=== PATIENT | female | born 1955 | race Caucasian/White ===

== ENCOUNTER → 2017-12-26 | Outpatient (CLI) | payer OTHER ==
[~2017-12-26] MED LIST: ALPR1TAB3 PO; GABA-113 PO; LISD20CA PO
== END | disposition home or self-care (01) ==
LOC: C.LABSPEC 17:24
PROVIDERS: ATTEND Physician Assistant
DX: R31.9 Hematuria, unspecified (principal)

== ENCOUNTER → 2018-02-03 | Outpatient (CLI) | payer OTHER ==
[2018-02-03 13:14] LABS: BASO % 0.7 %; BASO ABS # 0.05 K/uL (0-0.2); EOS % 3.6 %; EOS ABS # 0.24 K/uL (0-0.5); HEMOGLOBIN 14.3 g/dL (12.0-16.0); IG# 0.03 K/uL (0.00-0.02); LYMPH % 39.5 %; LYMPH ABS # 2.64 K/uL (1.2-3.4); MEAN CORPUSCULAR HEMOGLOBIN 29.9 pg (25-34); MEAN CORPUSCULAR HGB CONC 33.3 g/dl (32-36); MEAN PLATELET VOLUME 9.4 fL (7.4-10.4); MONO % 9.6 %; MONO ABS # 0.64 K/uL (0.11-0.59); NEUT % 46.2 %; NEUT ABS # 3.08 K/uL (1.4-6.5); PLATELET COUNT 394 K/uL (130-400); RED CELL DISTRIBUTION WIDTH CV 12.7 % (11.5-14.5); RED CELL DISTRIBUTION WIDTH SD 42.2 fL (36.4-46.3); WHITE BLOOD COUNT 6.68 K/uL (4.8-10.8)
[2018-02-03 13:26] LABS: HEMOGLOBIN A1C 5.8 % (4.5-5.6)
[2018-02-03 13:45] LABS: ALBUMIN 3.9 gm/dl (3.4-5.0); ALT/SGPT 38 U/L (12-78); AST/SGOT 26 U/L (15-37); BLOOD UREA NITROGEN 18 mg/dl (7-18); CALCIUM 9.1 mg/dl (8.5-10.1); CARBON DIOXIDE 28 mmol/L (21-32); CREATININE 0.93 mg/dl (0.60-1.20); GLUCOSE 92 mg/dl (70-99); POTASSIUM 4.1 mmol/L (3.5-5.1); SODIUM 139 mmol/L (136-145)
[2018-02-03 13:56] LABS: ALKALINE PHOSPHATASE 96 U/L (45-117); CHOLESTEROL 366 mg/dl (0-200); TOTAL PROTEIN 8.7 gm/dl (6.4-8.2)
== END | disposition home or self-care (01) ==
LOC: C.LABPBG 11:04
PROVIDERS: ATTEND Family Medicine
DX: Z01.818 Encounter for other preprocedural examination (principal); Z13.220 Encounter for screening for lipoid disorders; Z13.1 Encounter for screening for diabetes mellitus

== ENCOUNTER → 2018-04-10 | Outpatient (CLI) | payer OTHER | END | disposition home or self-care (01) | LOC: C.LABPBG 14:11 | PROVIDERS: ATTEND Family Medicine | DX: R39.9 Unspecified symptoms and signs involving the genitourinary system (principal) ==

== ENCOUNTER 2019-10-15 11:56 | Inpatient (IN) ==
[2019-10-15] MEDS ORDERED: SODIUM CHLORIDE 0.9% 1000ML 1,000 ML IV SCH (12:45)
--- NOTE | 2019-10-15 12:45 | Emergency Department Note ---
Entered by Du Duff acting as a scribe for Norberto Thompson DO History of Present Illness General Chief complaint: Fall Stated complaint: pelvic pain Time Seen by Provider: 10/15/19 12:32 Source: patient Limitations: no limitations History of Present Illness Onset (ago): day(s) (couple days ago) Location: left (hip) Pain Consistency: + constant Maximum Pain Intensity: 10 Quality: + constant Exacerbated By: + movement Associated symptoms: + other (back pain, confusion, delirious, trouble u rinating) The patient is a 64 year old female who presents to the Emergency Room with co mplaints of frequent falls. The patient states she fell multiple times but is unsure exactly how many. She states she fell at least twice. She states she was unloading groceries from the back of a truck when she fell. She notes she has been more confused and delirious lately. She notes she has been having trouble urinating. She states her back hurts. She states she was unable to move around yesterday and notes she fell asleep on the floor last night. She states she thinks she was on the floor for 2 days. She states she fractured her right pelvis 3 years ago. She notes she has severe and constant left hip pain. She states her foot hurts since the fall but is unsure how she injured it. She sta delonte she does not believe she hit her head. Home Medications Home Medications Medication Instructions Recorded Confirmed Type alprazolam 1 mg tablet 1 mg PO TID #20 tab 04/08/19 10/15/19 Rx gabapentin 300 mg capsule 600 mg PO TID cap 04/08/19 10/15/19 History methylphenidate HCl 20 mg tablet 20 mg PO BID 04/08/19 10/15/19 History Synthroid 75 mcg tablet 75 mcg PO DAILY #30 tab NS 05/21/19 10/15/19 Rx lidocaine 5 % topical patch 1 patch TOP DAILY #30 ea 05/25/19 10/15/19 Rx nitroglycerin 0.4 mg sublingual 0.4 mg SL Q5M PRN tab 07/03/19 10/15/19 History tablet Allergies Allergy/AdvReac Type Severity Reaction Status Date / Time codeine Allergy Mild RASH Verified 10/15/19 13:30 Sulfa (Sulfonamide Allergy Unknown . Verified 10/15/19 13:30 Antibiotics) ciprofloxacin Allergy Verified 10/15/19 13:30 latex Allergy Verified 10/15/19 13:30 eszopiclone [From Lunesta] AdvReac Severe wanted to Verified 10/15/19 13:30 hurt herseld lorazepam [From Ativan] AdvReac Severe wanted to Verified 10/15/19 13:30 hurt herself zolpidem [From Ambien] AdvReac Severe wanted to Verified 10/15/19 13:30 hurt herself Past Med/Surg History Medical History ADD (attention deficit disorder) without hyperactivity (Acute) Allergic rhinitis (Acute) Anxiety and depression (Acute) Asthma (Acute) Bipolar disorder COPD (chronic obstructive pulmonary disease) (Acute) Glaucoma (Acute) Lumbar disc disease (Acute) Lumbar radiculopathy (Acute) Panic disorder Peripheral neuropathy (Acute) Post traumatic stress disorder (PTSD) (Acute) Prediabetes (Acute) Schizotypical personality disorder (Acute) Tricuspid regurgitation (Acute) Urinary incontinence (Acute) Surgical History H/O: hysterectomy S/P cataract surgery Family History Brother Arteriolosclerosis Mother Breast cancer Stroke Diabetes Goiter Hypertension Myocardial infarction Father Cardiac disorder Myocardial infarction Sister Cardiac disorder Diabetes Hypertension Myocardial infarction Grandmother (Maternal) Congestive heart failure (CHF) Daughter Hyperthyroidism Social History Preferred Language: [place] marital status: Current Living Situation: Alone current occupational status: disabled Feels Safe at Home: No Smoking Status: Never smoker Hx Alcohol Use: No Hx Substance Use: No Childhood Exposure to Second-Hand Smoke: No Dental Care, Regularly: Yes Review of Systems See HPI for pertinent positives & negatives. and A total of 10 systems reviewed and were otherwise negative Physical Exam Vital Signs Vital Signs - 24 hr 10/15/19 12:09 10/15/19 12:19 10/15/19 12:27 Temperature 36.6 C Temperature Source Oral Pulse Rate 106 H 111 H 109 H Pulse Rate from SpO2 Sensor 111 H 110 H Respiratory Rate 17 21 31 H Respiratory Effort / Characteristics Non-Labored Spontaneous Respiratory Depth Normal Respiratory Pattern Regular Blood Pressure 149/91 H 144/82 H Blood Pressure Mean 110 123 Pulse Oximetry 96 95 93 Oxygen Delivery Method Room Air Sepsis Recent Fever Within 48 Hours No Sepsis Action Taken by Nursing No Action Required 10/15/19 12:30 10/15/19 12:31 10/15/19 13:00 Temperature Temperature Source Pulse Rate 112 H 110 H 107 H Pulse Rate from SpO2 Sensor 112 H 110 H 107 H Respiratory Rate 26 H 24 32 H Respiratory Effort / Characteristics Respiratory Depth Respiratory Pattern Blood Pressure 155/88 H 143/76 H Blood Pressure Mean 118 85 Pulse Oximetry 94 95 97 Oxygen Delivery Method Sepsis Recent Fever Within 48 Hours Sepsis Action Taken by Nursing 10/15/19 13:01 10/15/19 13:30 10/15/19 13:31 Temperature Temperature Source Pulse Rate 107 H 105 H 104 H Pulse Rate from SpO2 Sensor 107 H 104 H 104 H Respiratory Rate 28 H 23 22 Respiratory Effort / Characteristics Respiratory Depth Respiratory Pattern Blood Pressure 147/85 H Blood Pressure Mean 107 Pulse Oximetry 97 95 97 Oxygen Delivery Method Sepsis Recent Fever Within 48 Hours Sepsis Action Taken by Nursing GENERAL: The patient is awake and alert. She is somewhat anxious appearing and appears uncomfortable. EYES: The conjunctivae are clear. The pupils are round and reactive. EARS, NOSE, MOUTH AND THROAT: The nose is without any evidence of any deformity. Mucous membranes are moist. Tongue is midline. NECK: The neck is nontender and supple. RESPIRATORY: Normal respiratory effort is noted there is no evidence of wheezing rhonchi or rales CARDIOVASCULAR: Regular rate and rhythm noted there no murmurs rubs or gallops normal S1 normal S2. GASTROINTESTINAL: The abdomen is soft. Abdomen is nontender. BACK: No midline tenderness or or step-off noted range of motion in flexion extension as well as rotation no signs of muscle spasm noted MUSCULOSKELETAL/EXTREMITIES: There is ecchymosis over both lower extremities. There is ecchymosis over the right great toe. There is ecchymosis over the left breast. Trace pedal edema was noted bilaterally. Patient has pain with range of motion testing of the left hip. SKIN: There is no obvious evidence of any rash. Ecchymosis was noted on both lower extremities. NEUROLOGIC: Patient is awake alert and oriented x3. Course Course 1234: The patient was evaluated in room C12B, and a complete history and physical examination were performed. 1505: I discussed the patient's case with Dr. Marina - [facility] Hospitalist. She will evaluate the patient for further management Administered Medications Ioversol (Optiray 320 100ml) 94 ml IV ONCE PRN PRN Reason: Interaction Checking Stop: 10/19/19 13:49 Last Admin: 10/15/19 13:50 Dose: 94 ml Documented by: [id number] Discontinued Medications Sodium Chloride (Nss 1000ml) 1,000 mls @ 999 mls/hr IV .Q1H1M LEO Stop: 10/15/19 13:45 Last Infusion: 10/15/19 14:31 Dose: 0 mls/hr Documented by: [id number] Admin: 10/15/19 13:17 Dose: 999 mls/hr Documented by: [id number] Medical Decision Making Differential Diagnosis Differential diagnoses include major intracranial, cervical, spinal, thoracic, abdominal, pelvic and neurologic injury. Fracture, contusion, sprain, strain, laceration, abrasions included as well. Medical Records Attestation: I reviewed the patient's medical records. Home Medications Current Medication List: was personally reviewed by me Laboratory Data Attestation: I reviewed the patient's lab results. Result diagrams: 10/15/19 12:50 10/15/19 12:50 Lab Results 10/15/19 10/15/19 10/15/19 Range/Units 12:25 12:25 12:50 WBC 12.88 H (4.8-10.8) K/uL RBC 4.59 (4.2-5.4) M/uL Hgb 14.0 (12.0-16.0) g/dL Hct 41.0 (37-47) % MCV 89.3 (80-100) fL MCH 30.5 (25-34) pg MCHC 34.1 (32-36) g/dL RDW Std Deviation 43.6 (36.4-46.3) fL RDW Coeff of Romario 13.4 (11.5-14.5) % Plt Count 312 (130-400) K/uL MPV 9.5 (7.4-10.4) fL Immature Gran % (Auto) 0.2 % Neut % (Auto) 71.9 % Lymph % (Auto) 18.6 % Walker % (Auto) 8.9 % Eos % (Auto) 0.2 % Baso % (Auto) 0.2 % Immature Gran # (Auto) 0.03 H (0.00-0.02) K/uL Neut # (Auto) 9.26 H (1.4-6.5) K/uL Lymph # (Auto) 2.40 (1.2-3.4) K/uL Walker # (Auto) 1.14 H (0.11-0.59) K/uL Eos # (Auto) 0.02 (0-0.5) K/uL Baso # (Auto) 0.03 (0-0.2) K/uL PT (9.0-12.0) Seconds INR (0.9-1.1) APTT (21.0-31.0) Seconds PTT Ratio VBG pH (7.36-7.41) VBG pCO2 (38-50) mmHg VBG pO2 mmHg VBG HCO3 mmol/L VBG O2 Saturation % VBG Base Excess mEq/L Barometric Pressure mm/Hg Sodium (136-145) mmol/L Potassium (3.5-5.1) mmol/L Chloride (98-107) mmol/L Carbon Dioxide (21-32) mmol/L Anion Gap (3-11) BUN (7-18) mg/dl Creatinine (0.6-1.2) mg/dl POC Creatinine (0.6-1.3) mg/dl Est Cr Clr Drug Dosing ml/min Est GFR ( Amer) Est GFR (Non-Af Amer) BUN/Creatinine Ratio (10-20) Glucose (70-99) mg/dl Calcium (8.5-10.1) mg/dl Magnesium (1.8-2.4) mg/dl Total Bilirubin (0.2-1) mg/dl AST (15-37) U/L ALT (12-78) U/L Alkaline Phosphatase (45-117) U/L Total Creatine Kinase (26-192) U/L Troponin I (0-0.045) ng/ml Total Protein (6.4-8.2) gm/dl Albumin (3.4-5.0) gm/dl Globulin (2.5-4.0) gm/dl Albumin/Globulin Ratio (0.9-2) TSH (0.300-4.500) uIu/ml Free T4 (0.8-1.6) ng/dl Urine Color Dark Yellow Urine Appearance Cloudy A (Clear) Urine pH 5.0 (4.5-7.5) Ur Specific [place] 1.019 (1.000-1.030) Urine Protein Negative (Negative) Urine Glucose (UA) Trace H (Negative) Urine Ketones Trace H (Negative) Urine Blood 3+ H (Negative) Urine Nitrite Negative (Negative) Urine Bilirubin Negative (Negative) Urine Urobilinogen Negative (Negative) Ur Leukocyte Esterase Negative (Negative) Urine WBC (Auto) 0 (0-5) /hpf Urine RBC (Auto) 5-10 H (0-4) /hpf U Hyaline Cast (Auto) 5-10 H (0-5) /lpf U Epithel Cells (Auto) 5-10 H (0-5) /lpf Urine Bacteria (Auto) Negative (Negative) Salicylates (2.8-20) mg/dl Urine Opiates Screen Neg (Neg) Ur Methadone, Qual Neg (Neg) Acetaminophen (10-30) ug/ml Urine Barbiturates Neg (Neg) Ur Phencyclidine (PCP) Neg (Neg) U Amphetamin/Meth Scrn Neg (Neg) MDMA (Ecstasy) Screen Neg (Neg) U Benzodiazepines Scrn Pos H (Neg) Ur Cocaine Metabolite Neg (Neg) U Marijuana (THC) Screen Neg (Neg) Ethyl Alcohol mg/dL (0-3) mg/dl 10/15/19 10/15/19 10/15/19 Range/Units 12:50 12:50 12:50 WBC (4.8-10.8) K/uL RBC (4.2-5.4) M/uL Hgb (12.0-16.0) g/dL Hct (37-47) % MCV (80-100) fL MCH (25-34) pg MCHC (32-36) g/dL RDW Std Deviation (36.4-46.3) fL RDW Coeff of Romario (11.5-14.5) % Plt Count (130-400) K/uL MPV (7.4-10.4) fL Immature Gran % (Auto) % Neut % (Auto) % Lymph % (Auto) % Walker % (Auto) % Eos % (Auto) % Baso % (Auto) % Immature Gran # (Auto) (0.00-0.02) K/uL Neut # (Auto) (1.4-6.5) K/uL Lymph # (Auto) (1.2-3.4) K/uL Walker # (Auto) (0.11-0.59) K/uL Eos # (Auto) (0-0.5) K/uL Baso # (Auto) (0-0.2) K/uL PT 9.8 (9.0-12.0) Seconds INR 1.0 (0.9-1.1) APTT 23.1 (21.0-31.0) Seconds PTT Ratio 0.9 VBG pH (7.36-7.41) VBG pCO2 (38-50) mmHg VBG pO2 mmHg VBG HCO3 mmol/L VBG O2 Saturation % VBG Base Excess mEq/L Barometric Pressure mm/Hg Sodium 138 (136-145) mmol/L Potassium 3.3 L (3.5-5.1) mmol/L Chloride 104 (98-107) mmol/L Carbon Dioxide 24 (21-32) mmol/L Anion Gap 10.0 (3-11) BUN 20 H (7-18) mg/dl Creatinine 0.90 (0.6-1.2) mg/dl POC Creatinine (0.6-1.3) mg/dl Est Cr Clr Drug Dosing 52.3 ml/min Est GFR ( Amer) 78.9 Est GFR (Non-Af Amer) 68.0 BUN/Creatinine Ratio 21.9 H (10-20) Glucose 125 H (70-99) mg/dl Calcium 9.3 (8.5-10.1) mg/dl Magnesium 2.4 (1.8-2.4) mg/dl Total Bilirubin 1.2 H (0.2-1) mg/dl AST 672 H (15-37) U/L ALT 269 H (12-78) U/L Alkaline Phosphatase 117 (45-117) U/L Total Creatine Kinase 59101 H (26-192) U/L Troponin I 0.047 H* (0-0.045) ng/ml Total Protein 7.8 (6.4-8.2) gm/dl Albumin 3.7 (3.4-5.0) gm/dl Globulin 4.1 H (2.5-4.0) gm/dl Albumin/Globulin Ratio 0.9 (0.9-2) TSH 0.074 L (0.300-4.500) uIu/ml Free T4 2.10 H (0.8-1.6) ng/dl Urine Color Urine Appearance (Clear) Urine pH (4.5-7.5) Ur Specific [place] (1.000-1.030) Urine Protein (Negative) Urine Glucose (UA) (Negative) Urine Ketones (Negative) Urine Blood (Negative) Urine Nitrite (Negative) Urine Bilirubin (Negative) Urine Urobilinogen (Negative) Ur Leukocyte Esterase (Negative) Urine WBC (Auto) (0-5) /hpf Urine RBC (Auto) (0-4) /hpf U Hyaline Cast (Auto) (0-5) /lpf U Epithel Cells (Auto) (0-5) /lpf Urine Bacteria (Auto) (Negative) Salicylates < 1.7 L (2.8-20) mg/dl Urine Opiates Screen (Neg) Ur Methadone, Qual (Neg) Acetaminophen < 2 L (10-30) ug/ml Urine Barbiturates (Neg) Ur Phencyclidine (PCP) (Neg) U Amphetamin/Meth Scrn (Neg) MDMA (Ecstasy) Screen (Neg) U Benzodiazepines Scrn (Neg) Ur Cocaine Metabolite (Neg) U Marijuana (THC) Screen (Neg) Ethyl Alcohol mg/dL (0-3) mg/dl 10/15/19 10/15/19 10/15/19 Range/Units 12:50 12:50 13:08 WBC (4.8-10.8) K/uL RBC (4.2-5.4) M/uL Hgb (12.0-16.0) g/dL Hct (37-47) % MCV (80-100) fL MCH (25-34) pg MCHC (32-36) g/dL RDW Std Deviation (36.4-46.3) fL RDW Coeff of Romario (11.5-14.5) % Plt Count (130-400) K/uL MPV (7.4-10.4) fL Immature Gran % (Auto) % Neut % (Auto) % Lymph % (Auto) % Walker % (Auto) % Eos % (Auto) % Baso % (Auto) % Immature Gran # (Auto) (0.00-0.02) K/uL Neut # (Auto) (1.4-6.5) K/uL Lymph # (Auto) (1.2-3.4) K/uL Walker # (Auto) (0.11-0.59) K/uL Eos # (Auto) (0-0.5) K/uL Baso # (Auto) (0-0.2) K/uL PT (9.0-12.0) Seconds INR (0.9-1.1) APTT (21.0-31.0) Seconds PTT Ratio VBG pH 7.41 (7.36-7.41) VBG pCO2 41 (38-50) mmHg VBG pO2 27 mmHg VBG HCO3 25 mmol/L VBG O2 Saturation < 60.0 % VBG Base Excess 0.3 mEq/L Barometric Pressure 736.5 mm/Hg Sodium (136-145) mmol/L Potassium (3.5-5.1) mmol/L Chloride (98-107) mmol/L Carbon Dioxide (21-32) mmol/L Anion Gap (3-11) BUN (7-18) mg/dl Creatinine (0.6-1.2) mg/dl POC Creatinine 0.7 (0.6-1.3) mg/dl Est Cr Clr Drug Dosing ml/min Est GFR ( Amer) Est GFR (Non-Af Amer) BUN/Creatinine Ratio (10-20) Glucose (70-99) mg/dl Calcium (8.5-10.1) mg/dl Magnesium (1.8-2.4) mg/dl Total Bilirubin (0.2-1) mg/dl AST (15-37) U/L ALT (12-78) U/L Alkaline Phosphatase (45-117) U/L Total Creatine Kinase (26-192) U/L Troponin I (0-0.045) ng/ml Total Protein (6.4-8.2) gm/dl Albumin (3.4-5.0) gm/dl Globulin (2.5-4.0) gm/dl Albumin/Globulin Ratio (0.9-2) TSH (0.300-4.500) uIu/ml Free T4 (0.8-1.6) ng/dl Urine Color Urine Appearance (Clear) Urine pH (4.5-7.5) Ur Specific [place] (1.000-1.030) Urine Protein (Negative) Urine Glucose (UA) (Negative) Urine Ketones (Negative) Urine Blood (Negative) Urine Nitrite (Negative) Urine Bilirubin (Negative) Urine Urobilinogen (Negative) Ur Leukocyte Esterase (Negative) Urine WBC (Auto) (0-5) /hpf Urine RBC (Auto) (0-4) /hpf U Hyaline Cast (Auto) (0-5) /lpf U Epithel Cells (Auto) (0-5) /lpf Urine Bacteria (Auto) (Negative) Salicylates (2.8-20) mg/dl Urine Opiates Screen (Neg) Ur Methadone, Qual (Neg) Acetaminophen (10-30) ug/ml Urine Barbiturates (Neg) Ur Phencyclidine (PCP) (Neg) U Amphetamin/Meth Scrn (Neg) MDMA (Ecstasy) Screen (Neg) U Benzodiazepines Scrn (Neg) Ur Cocaine Metabolite (Neg) U Marijuana (THC) Screen (Neg) Ethyl Alcohol mg/dL < 3.0 (0-3) mg/dl Imaging Data Radiologist's Impression: Radiology results as stated below per my review and the radiologist's interpretation: XR chest 1V portable CLINICAL HISTORY: 64 years-old Female presenting with weakness. TECHNIQUE: Portable upright AP view of the chest was obtained. COMPARISON: 09/10/2016. FINDINGS: Cardiomediastinal silhouette normal. Mildly low lung volumes with hypoventilatory changes. Bandlike opacity at the left lung base. No other focal opacity. No large effusion or pneumothorax. Degenerative changes of the thoracic spine. Upper abdomen normal. IMPRESSION: 1. Low lung volumes with hypoventilatory changes and left basilar atelectasis. ACT 112: Negative or not required by law. Electronically signed by: Cedric Miller M.D. 10/15/2019 1:37 PM XR foot RT min 3V routine CLINICAL HISTORY: 64 years-old Female presenting with fall. TECHNIQUE: Frontal, oblique, and lateral views of the right foot were obtained. COMPARISON: None. FINDINGS: Accessory navicular is noted. No acute fracture or malalignment. Small enthesophyte at the insertion of the Achilles tendon. No radiographic soft tissue abnormality. IMPRESSION: No acute osseous injury. ACT 112: Negative or not required by law. Electronically signed by: Cedric Miller M.D. 10/15/2019 1:[address] abd pelvis IV con only CLINICAL HISTORY: 64 years-old Female presenting with fall. TECHNIQUE: Multidetector CT of the abdomen and pelvis was performed after the a dministration of intravenous contrast. IV contrast: 94 mL of Optiray 320. One or more dose lowering techniques were used consistent with the principles of ALARA (as low as reasonably achievable), including automatic exposure control, mA or kV adjustment to individual patient size, and/or use of iterative reconstruction. COMPARISON: None. CT DOSE (mGy.cm): The estimated cumulative dose is 1329.89. 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 Lung bases: Normal heart size. No pericardial or pleural effusion. Extensive dependent atelectasis. Atelectasis or scarring also noted in the lingula and r ight middle lobe. Liver: Normal morphology. Density suggestive of hepatic steatosis. No focal lesion. Patent hepatic vasculature. Biliary: No intrahepatic or extrahepatic biliary ductal dilatation. Normal gallbladder. Pancreas: Normal. Spleen: Normal. Adrenal glands: Normal. Kidneys and ureters: Normal. No hydronephrosis. Bladder: Decompressed with a Ellis catheter. Pelvic organs: Uterus surgically absent. Normal right ovary. The left ovary may be atrophic or absent. Bowel: Mild stool burden throughout normal caliber colon. The appendix is normal. No bowel obstruction. Peritoneal cavity: No free fluid or intraperitoneal gas. Lymph nodes: No enlarged lymph nodes in the abdomen or pelvis. Vasculature: Atherosclerosis of the normal caliber abdominal aorta. IVC patent. Abdominal wall: Normal. Musculoskeletal: Mild degenerative changes of the spine. No acute fracture. Prominent disc bulges at L1-2 and more severely at L2-3 with moderate to severe spinal canal narrowing. IMPRESSION: 1. No acute intra-abdominal injury. ACT 112: Negative or not required by law. Electronically signed by: Cedric Miller M.D. 10/15/2019 2:[address] cervical spine wo con CT DOSE: 1329.89 mGy.cm CLINICAL HISTORY: 64 years-old Female with fall. Acute head and neck injury status post fall COMPARISON: CT had of same day TECHNIQUE: Multiple axial CT images of the cervical spine were obtained without contrast. A dose lowering technique was utilized adhering to the principles of ALARA. FINDINGS: Straightening of the normal cervical lordosis. 2 mm anterolisthesis C4 on C5 is likely secondary to long-standing facet arthropathy. Moderate to severe disc space narrowing at C5-C6 with posterior disc osteophyte complex. Mild linear calcifications of the posterior longitudinal ligament at the C6 level. Moderate to severe multilevel facet arthrosis with moderate multilevel spondylitic spurring. Evaluation of the central canal and neuroforamina are better evaluated by MRI. Multilevel foraminal narrowing is noted. No acute fracture or sub luxation identified. No pneumothorax. Atelectasis versus scarring of the apical right upper lobe. Soft tissues are unremarkable. IMPRESSION: No acute cervical spine fracture or subluxation. ACT 112: Negative or not required by law. The above report was generated using voice recognition software. It may contain grammatical, syntax or spelling errors. Electronically signed by: Dhaval Bernal M.D. 10/15/2019 2:[address] head/brain wo con CLINICAL HISTORY: 64 years-old Female with fall. Acute head injury status post fall TECHNIQUE: Multiple axial CT images of the head were obtained without contrast. A dose lowering technique was utilized adhering to the principles of ALARA. COMPARISON: Head CT 09/10/2016. FINDINGS: No acute intracranial hemorrhage, midline shift, intracranial mass, hydrocephalus, territorial ischemia or abnormal extra-axial collection. Minimal patchy white matter hypodensities may reflect developing chronic micro-Rasco ischemic disease. Cerebral vascular calcifications are noted. The calvarium is intact. Prior bilateral lens replacement. The paranasal sinuses, mastoid air cells, and middle ear cavities are clear. IMPRESSION: No acute intracranial abnormality or calvarial fracture. ACT 112: Negative or not required by law. The above report was generated using voice recognition software. It may contain grammatical, syntax or spelling errors. Electronically signed by: Dhaval Bernal M.D. 10/15/2019 2:02 PM XR hip LT 2V w pelvis CLINICAL HISTORY: 64 years-old Female presenting with fall. TECHNIQUE: Single frontal view of the pelvis and frontal and frog-leg lateral views of the left hip were obtained. COMPARISON: None. FINDINGS: Sacroiliac joints, pubic symphysis, and hip joints congruent. Arcuate lines of the sacrum intact. Bony pelvis intact. Femoral necks intact. Lower lumbar spine with degenerative change. No advanced degenerative change of the left hip. IMPRESSION: No acute osseous injury or advanced degenerative change of the pelvis or left hip. ACT 112: Negative or not required by law. Electronically signed by: Cedric Miller M.D. 10/15/2019 1:44 PM ECG Data Attestation: I personally reviewed and interpreted this ECG as follows: Rate (beats per minute): 103 Rhythm: + sinus tachycardia ECG ST segments: no ST depression and no ST elevation ECG Findings: + Q waves (inferior); no PACs and no PVCs Comparison ECG Date: from (09/10/16) Change: no significant change Blood Pressure Blood Pressure Findings: Elevated blood pressure Blood Pressure Disposition: further management by hospitalist MDM Narrative The patient is a 64-year-old female who presented to the emergency department for an evaluation after a fall. The patient states that she was on the floor after a slight fall from a standing position although the patient's story changed multiple times. The patient had right hip pain on physical exam but was also found to be in urinary retention. Ellis catheter was placed and over a liter of urine was noted. The patient was not found to have any traumatic injury on CT of the head neck abdomen pelvis. X-rays did not reveal any acute fracture of the hip. The patient was found to have severe rhabdomyolysis by laboratory studies. She was treated with IV fluids in the emergency department. She was reevaluated multiple times. She continues to have very severe pain in her legs which is likely from the rhabdomyolysis. I discussed the patient's condition with the on-call [facility] hospitalist group. They have agreed to evaluate the patient in the emergency department for further management and disposition. I discussed the patient's laboratory and radiographic studies with her. Impression & Plan Fall, Rhabdomyolysis, Urinary retention, Lower extremity pain Discharge Plan Visit Data Chief Complaint: Fall Stated Complaint: pelvic pain ED Provider: Norberto Thompson Discharge Problem: Fall, Rhabdomyolysis, Urinary retention, Lower extremity pain Patient Disposition: Being Evaluated by Hospitalist Forms Stand Alone Forms: My [facility] [address] Prescriptions Prescriptions: No Action alprazolam [Xanax] 1 mg tablet 1 mg PO TID Qty: 20 RF: 0 gabapentin 300 mg capsule 600 mg PO TID RF: 0 methylphenidate HCl [Ritalin] 20 mg tablet 20 mg PO BID RF: 0 levothyroxine [Synthroid] 75 mcg tablet 75 mcg PO DAILY Qty: 30 RF: 2 lidocaine [Lidoderm] 5 % adhesive patch,medicated 1 patch TOP DAILY Qty: 30 RF: 0 nitroglycerin 0.4 mg tablet, sublingual 0.4 mg SL Q5M PRN (Reason: chest pain) RF: 0 Referrals Referrals: Nava Lorenz DO [Primary Care Provider] - Discharge Problem: Fall Qualifiers: Encounter type: initial encounter Qualified Code(s): W19.XXXA - Unspecified fall, initial encounter Rhabdomyolysis Qualifiers: Rhabdomyolysis type: non-traumatic Qualified Code(s): M62.82 - Rhabdomyolysis Lower extremity pain Qualifiers: Laterality: left Qualified Code(s): M79.605 - Pain in left leg The scribe's documentation has been prepared under my direction and personally reviewed by me in its entirety. I confirm that the note above accurately reflects all work, treatment, procedures, and medical decision making performed by me.
[2019-10-15 12:55] LABS: Appearance Urine Cloudy (Clear); Bacteria Urine Automated Negative (Negative); Bilirubin Urine Negative (Negative); Blood Urine 3+ (Negative); Color Urine Dark Yellow; Glucose Urine UA Trace (Negative); Ketones Urine Trace (Negative); Leukocyte Esterase Urine Negative (Negative); Nitrite Urine Negative (Negative); Protein Urine Negative (Negative); Specific Gravity Urine 1.019 (1.000-1.030); Urobilinogen Urine Negative (Negative); WBC Urine Automated 0 /hpf (0-5)
[2019-10-15 13:10] LABS: Base Excess VBG 0.3 mEq/L; HCO3 VBG 25 mmol/L; PCO2 VBG 41 mmHg (38-50); PO2 VBG 27 mmHg; pH VBG 7.41 (7.36-7.41)
[2019-10-15 13:11] LABS: Basophils # (auto) 0.03 K/uL (0-0.2); Basophils % (auto) 0.2 %; Eosinophils # (auto) 0.02 K/uL (0-0.5); Eosinophils % (auto) 0.2 %; Immature Granulocytes # (auto) 0.03 K/uL (0.00-0.02); Immature Granulocytes % (auto) 0.2 %; Lymphocytes % (auto) 18.6 %; Mean Corpuscular Hemoglobin 30.5 pg (25-34); Mean Corpuscular Hgb Conc 34.1 g/dL (32-36); Mean Corpuscular Volume 89.3 fL (80-100); Mean Platelet Volume 9.5 fL (7.4-10.4); Monocytes # (auto) 1.14 K/uL (0.11-0.59); Monocytes % (auto) 8.9 %; Neutrophils # (auto) 9.26 K/uL (1.4-6.5); Neutrophils % (auto) 71.9 %; Platelet Count 312 K/uL (130-400); RDW Coefficient of Variation 13.4 % (11.5-14.5); RDW Standard Deviation 43.6 fL (36.4-46.3); Red Blood Count 4.59 M/uL (4.2-5.4); White Blood Count 12.88 K/uL (4.8-10.8)
[2019-10-15 13:14] LABS: Oxygen Saturation VBG < 60.0 %
[2019-10-15 13:20] LABS: Partial Thromboplastin Ratio 0.9; Partial Thromboplastin Time 23.1 Seconds (21.0-31.0); Prothrombin Time 9.8 Seconds (9.0-12.0)
[2019-10-15 13:27] LABS: Amphetamines+Metham, Urine Neg (Neg); Barbiturates, Urine Neg (Neg); Benzodiazepine, Urine Pos (Neg); Cocaine, Urine Neg (Neg); MDMA (Ecstacy), Urine Neg (Neg); Methadone, Urine Neg (Neg); Opiate, Urine Neg (Neg); Phencyclidine, Urine Neg (Neg)
[2019-10-15 13:33] LABS: Albumin Level 3.7 gm/dl (3.4-5.0); BUN Creatinine Ratio 21.9 (10-20); Calcium 9.3 mg/dl (8.5-10.1); Creatinine Clr Calc Pharmacy 52.3 ml/min; Est GFR (African American) 78.9; Magnesium 2.4 mg/dl (1.8-2.4); Potassium 3.3 mmol/L (3.5-5.1)
[2019-10-15 13:35] LABS: Acetaminophen < 2 ug/ml (10-30)
[2019-10-15 13:36] LABS: Salicylate < 1.7 mg/dl (2.8-20)
--- NOTE | 2019-10-15 13:39 | XRay Report ---
XR chest 1V portable CLINICAL HISTORY: 64 years-old Female presenting with weakness. TECHNIQUE: Portable upright AP view of the chest was obtained. COMPARISON: 09/10/2016. FINDINGS: Cardiomediastinal silhouette normal. Mildly low lung volumes with hypoventilatory changes. Bandlike o pacity at the left lung base. No other focal opacity. No large effusion or pneumothorax. Degenerative changes of the thoracic spine. Upper abdomen normal. IMPRESSION: 1. Low lung volumes with hypoventilatory changes and left basilar atelectasis. ACT 112: Negative or not required by law. Electronically signed by: Cedric Miller M.D. 10/15/2019 1:37 PM
--- NOTE | 2019-10-15 13:40 | XRay Report ---
XR foot RT min 3V routine CLINICAL HISTORY: 64 years-old Female presenting with fall. TECHNIQUE: Frontal, oblique, and lateral views of the right foot were obtained. COMPARISON: None. FINDINGS: Accessory navicular is noted. No acute fracture or malalignment. Small enthesophyte at the insertion of the Achilles tendon. No radiographic soft tissue abnormality. IMPRESSION: No acute osseous injury. ACT 112: Negative or not required by law. Electronically signed by: Cedric Miller M.D. 10/15/2019 1:39 PM
--- NOTE | 2019-10-15 13:45 | XRay Report ---
XR hip LT 2V w pelvis CLINICAL HISTORY: 64 years-old Female presenting with fall. TECHNIQUE: Single frontal view of the pelvis and frontal and frog-leg lateral views of the left hip w ere obtained. COMPARISON: None. FINDINGS: Sacroiliac joints, pubic symphysis, and hip joints congruent. Arcuate lines of the sacrum intact. Bon y pelvis intact. Femoral necks intact. Lower lumbar spine with degenerative change. No advanced degen erative change of the left hip. IMPRESSION: No acute osseous injury or advanced degenerative change of the pelvis or left hip. ACT 112: Negative or not required by law. Electronically signed by: Cedric Miller M.D. 10/15/2019 1:44 PM
[2019-10-15 13:48] LABS: Albumin Globulin Ratio 0.9 (0.9-2); Bilirubin,Total 1.2 mg/dl (0.2-1); Globulin 4.1 gm/dl (2.5-4.0); Thyroid Stimulating Hormone 0.074 uIu/ml (0.300-4.500); Total Protein 7.8 gm/dl (6.4-8.2); Troponin I 0.047 ng/ml (0-0.045)
[2019-10-15] MEDS ORDERED: IOVERSOL 100ml IV PRN (13:50)
--- NOTE | 2019-10-15 14:03 | CT Scan Report ---
CT head/brain wo con CLINICAL HISTORY: 64 years-old Female with fall. Acute head injury status post fall TECHNIQUE: Multiple axial CT images of the head were obtained without contrast. A dose lowering tech nique was utilized adhering to the principles of ALARA. COMPARISON: Head CT 09/10/2016. FINDINGS: No acute intracranial hemorrhage, midline shift, intracranial mass, hydrocephalus, territorial ischem ia or abnormal extra-axial collection. Minimal patchy white matter hypodensities may reflect developi ng chronic micro-Rasco ischemic disease. Cerebral vascular calcifications are noted. The calvarium is intact. Prior bilateral lens replacement. The paranasal sinuses, mastoid air cells, and middle ear cavities are clear. IMPRESSION: No acute intracranial abnormality or calvarial fracture. ACT 112: Negative or not required by law. The above report was generated using voice recognition software. It may contain grammatical, syntax o r spelling errors. Electronically signed by: Dhaval Bernal M.D. 10/15/2019 2:02 PM
--- NOTE | 2019-10-15 14:08 | CT Scan Report ---
CT cervical spine wo con CT DOSE: 1329.89 mGy.cm CLINICAL HISTORY: 64 years-old Female with fall. Acute head and neck injury status post fall COMPARISON: CT had of same day TECHNIQUE: Multiple axial CT images of the cervical spine were obtained without contrast. A dose low ering technique was utilized adhering to the principles of ALARA. FINDINGS: Straightening of the normal cervical lordosis. 2 mm anterolisthesis C4 on C5 is likely secondary to l ang-standing facet arthropathy. Moderate to severe disc space narrowing at C5-C6 with posterior disc osteophyte complex. Mild linear calcifications of the posterior longitudinal ligament at the C6 level . Moderate to severe multilevel facet arthrosis with moderate multilevel spondylitic spurring. Evalua tion of the central canal and neuroforamina are better evaluated by MRI. Multilevel foraminal narrowi ng is noted. No acute fracture or subluxation identified. No pneumothorax. Atelectasis versus scarrin g of the apical right upper lobe. Soft tissues are unremarkable. IMPRESSION: No acute cervical spine fracture or subluxation. ACT 112: Negative or not required by law. The above report was generated using voice recognition software. It may contain grammatical, syntax o r spelling errors. Electronically signed by: Dhaval Bernal M.D. 10/15/2019 2:07 PM
--- NOTE | 2019-10-15 14:17 | CT Scan Report ---
CT abd pelvis IV con only CLINICAL HISTORY: 64 years-old Female presenting with fall. TECHNIQUE: Multidetector CT of the abdomen and pelvis was performed after the administration of intra venous contrast. IV contrast: 94 mL of Optiray 320. One or more dose lowering techniques were used co nsistent with the principles of ALARA (as low as reasonably achievable), including automatic exposure control, mA or kV adjustment to individual patient size, and/or use of iterative reconstruction. COMPARISON: None. CT DOSE (mGy.cm): The estimated cumulative dose is 1329.89. FINDINGS: Urinalysis Technician topogram: Unremarkable. Lung bases: Normal heart size. No pericardial or pleural effusion. Extensive dependent atelectasis. A telectasis or scarring also noted in the lingula and right middle lobe. Liver: Normal morphology. Density suggestive of hepatic steatosis. No focal lesion. Patent hepatic va sculature. Biliary: No intrahepatic or extrahepatic biliary ductal dilatation. Normal gallbladder. Pancreas: Normal. Spleen: Normal. Adrenal glands: Normal. Kidneys and ureters: Normal. No hydronephrosis. Bladder: Decompressed with a Ellis catheter. Pelvic organs: Uterus surgically absent. Normal right ovary. The left ovary may be atrophic or absent . Bowel: Mild stool burden throughout normal caliber colon. The appendix is normal. No bowel obstructio n. Peritoneal cavity: No free fluid or intraperitoneal gas. Lymph nodes: No enlarged lymph nodes in the abdomen or pelvis. Vasculature: Atherosclerosis of the normal caliber abdominal aorta. IVC patent. Abdominal wall: Normal. Musculoskeletal: Mild degenerative changes of the spine. No acute fracture. Prominent disc bulges at L1-2 and more severely at L2-3 with moderate to severe spinal canal narrowing. IMPRESSION: 1. No acute intra-abdominal injury. ACT 112: Negative or not required by law. Electronically signed by: Cedric Miller M.D. 10/15/2019 2:15 PM
[2019-10-15 14:33] LABS: T4 Free Thyroxine 2.1 ng/dl (0.8-1.6)
[2019-10-15] MEDS ORDERED: SODIUM CHLORIDE 0.9% 1000ML 1,000 ML IV ONE (15:03)
--- NOTE | 2019-10-15 17:24 | History & Physical Report ---
Date of Service October 15, 2019 Assessment & Plan (1) Rhabdomyolysis: Admit to [facility] on telemetry Vital signs every 4 hours Continue following CK Continue following elevated troponin x3 with EKG TTE pending Continue IV fluid hydration Continue pain management DVT prophylaxis SCDs and teds Full code Present on Admission?: Yes (2) Transaminitis: Patient has elevated transaminases Check ultrasound of the liver Trended down transaminases Follow-up with GI if persistently high Hepatitis panel Present on Admission?: Yes (3) Urinary retention: Started Flomax Continue monitoring Present on Admission?: Yes (4) Lower extremity pain: Continue pain management Present on Admission?: Yes (5) ADD (attention deficit disorder) without hyperactivity: Continue home medicine methylphenidate 20 mg p.o. twice daily Continue alprazolam 1 mg p.o. 3 times daily Present on Admission?: Yes (6) Frequent falls: Physical and Occupational Therapy Present on Admission?: Yes (7) Prediabetes: Will check A1c Present on Admission?: Yes (8) Elevated troponin: Continue trending down troponin Small rise.It does not appears to be related to the ac. coronary sy. Most likely related to elevated CK Changes on the EKG TTE pending Present on Admission?: Yes (9) Hypothyroidism: Patient is on Synthroid 75 MCG's p.o. daily. Her TSH is low 0.0 74 and her T4 is 2.1. Hold Synthroid for now. Follow up with commercial manager as outpatient. Present on Admission?: Yes History of Present Illness Chief Complaint: Frequent falls Primary Care Provider: Nava Lorenz DO The patient is a 64 years old female with attention deficit disorder, COPD, gla ucoma, lumbar disc disease, posttraumatic stress disorder, prediabetes, schizotypal personality disorder tricuspid regurgitation who presents to the emergency room with a complaint of frequent falls. The patient states that she fell multiple times but does not recall how many times. Patient states that she was unloading groceries from the back of her truck when she fell. Patient reports having issues with urinating. She reports that her back hurts. Patient reports that she fell asleep on the floor last night but she is not sure how many days she spent sleeping like this possibly 2. Patient stated she fractured her right pelvis 3 years ago. She reports having a severe and constant left hip pain. Patient reports that she did not hit his head when she fell. EKG is reviewed and shows sinus tachycardia. Nonspecific ST segment elevation in V2 and V3. Labs are reviewed: WBC is 12.88, hemoglobin 14, hematocrit 41, platelets 312, PT 9.8, INR 1, APTT 23.1, PTT ratio 0.9. VBG 7.41, PCO2 41, PO2 was 27, HCO3 25, grossly normal. Sodium 138, potassium 3.3, chloride 104, anion gap 10, BUN 20, creatinine 0.9, GFR 68,Magnesium 2.4, total bilirubin 1.2, AST 672, ALT 269, total creatinine kinase 86804, troponin elevated 0.047, globulin 4.1, TSH 0.0 74, free T4. 2.[address] of the head no acute intracranial abnormality or calvarial fracture. X-rays of the left hip: No acute osseous injury or advanced degenerative degenerative changes of the pelvis or the left hip. Right foot no acute osseous injury. Urine is cloudy with 3+ blood and negative leukocyte esterase and negative nitrates. Negative bacteria. Decision was made to admit patient for rhabdomyolysis, elevated CK and frequent falls. Allergies Allergy/AdvReac Type Severity Reaction Status Date / Time codeine Allergy Mild RASH Verified 10/15/19 13:30 Sulfa (Sulfonamide Allergy Unknown . Verified 10/15/19 13:30 Antibiotics) ciprofloxacin Allergy Verified 10/15/19 13:30 latex Allergy Verified 10/15/19 13:30 eszopiclone [From Lunesta] AdvReac Severe wanted to Verified 10/15/19 13:30 hurt herseld lorazepam [From Ativan] AdvReac Severe wanted to Verified 10/15/19 13:30 hurt herself zolpidem [From Ambien] AdvReac Severe wanted to Verified 10/15/19 13:30 hurt herself Home Medications Home Medications Medication Instructions Recorded Confirmed Type alprazolam 1 mg tablet 1 mg PO TID #20 tab 04/08/19 10/15/19 Rx gabapentin 300 mg capsule 600 mg PO TID cap 04/08/19 10/15/19 History methylphenidate HCl 20 mg tablet 20 mg PO BID 04/08/19 10/15/19 History Synthroid 75 mcg tablet 75 mcg PO DAILY #30 tab NS 05/21/19 10/15/19 Rx lidocaine 5 % topical patch 1 patch TOP DAILY #30 ea 05/25/19 10/15/19 Rx nitroglycerin 0.4 mg sublingual 0.4 mg SL Q5M PRN tab 07/03/19 10/15/19 History tablet Past Med/Surg History Medical History ADD (attention deficit disorder) without hyperactivity (Acute) Allergic rhinitis (Acute) Anxiety and depression (Acute) Asthma (Acute) Bipolar disorder COPD (chronic obstructive pulmonary disease) (Acute) Glaucoma (Acute) Lumbar disc disease (Acute) Lumbar radiculopathy (Acute) Panic disorder Peripheral neuropathy (Acute) Post traumatic stress disorder (PTSD) (Acute) Prediabetes (Acute) Schizotypical personality disorder (Acute) Tricuspid regurgitation (Acute) Urinary incontinence (Acute) Surgical History H/O: hysterectomy S/P cataract surgery Family History Brother Arteriolosclerosis Mother Breast cancer Stroke Diabetes Goiter Hypertension Myocardial infarction Father Cardiac disorder Myocardial infarction Sister Cardiac disorder Diabetes Hypertension Myocardial infarction Grandmother (Maternal) Congestive heart failure (CHF) Daughter Hyperthyroidism Social History Preferred Language: Albanian Communication Ability: Effective 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 friend is not support current occupational status: disabled Feels Safe at Home: No Smoking Status: Never smoker Hx Alcohol Use: No Hx Substance Use: No Childhood Exposure to Second-Hand Smoke: No Dental Care, Regularly: Yes Review of Systems Review of Systems: All systems reviewed & are unremarkable except as noted in HPI & below Physical Exam Constitutional: WD/WN, vitals as above well developed and + obese Eyes: PERRL, conjunctivae normal, anicteric sclerae ENMT: external ear and nose normal, oropharynx normal Neck: trachea midline, no thyromegaly Respiratory: normal respiratory effort, lungs clear to auscultation Cardiovascular: Rate/Rhythm: + tachycardic Heart Sounds: normal S1 and normal S2 Vessels: dorsalis pedis pulses present Gastrointestinal (Abdomen): normal bowel sounds, soft, nontender, no hepatosplenomegaly Musculoskeletal: Knee: + limited ROM of knee Ankle: + ecchymosis (Large ecchymosis over the left lower extremity and hip) Skin: no rashes, warm and dry Large ecchymosis over the left hip and left lower extremity Neurologic: patellar DTR's 2+ bilat, sensation intact Psychiatric: Orientation: oriented x 3 and cooperative Insight: + limited insight Lymphatic: no cervical or axillary lymphadenopathy Results & Data Vital Signs (Past 12 Hours) Vital Signs Temp Pulse Resp BP Pulse Ox 10/15/19 15:01 98 H 20 92 10/15/19 15:00 100 H 27 H 154/76 H 99 10/15/19 14:31 106 H 21 95 10/15/19 14:30 105 H 155/80 H 96 10/15/19 14:01 107 H 94 10/15/19 14:00 107 H 20 132/105 H 93 10/15/19 13:31 104 H 22 97 10/15/19 13:30 105 H 23 147/85 H 95 10/15/19 13:01 107 H 28 H 97 10/15/19 13:00 107 H 32 H 143/76 H 97 10/15/19 12:31 110 H 24 95 10/15/19 12:30 112 H 26 H 155/88 H 94 10/15/19 12:27 109 H 31 H 93 10/15/19 12:19 111 H 21 144/82 H 95 10/15/19 12:09 36.6 C 106 H 17 149/91 H 96 Code Status & VTE Plan Code Status Full code VTE Prophylaxis Plan VTE Prophylaxis will be ordered: Yes PG Care Time/CCT Total # of Minutes Spent Total Time Spent with Patient: Total time spent is greater than 50% in coordination of care (as documented) at patient's floor/unit and/or counseling patient: Coding Level of Care Code 46935 Initial Inpt Care Lvl 3 Diagnoses Rhabdomyolysis M62.82 Rhabdomyolysis type: non-traumatic Transaminitis R74.0 Urinary retention R33.9 Lower extremity pain M79.605 Laterality: left ADD (attention deficit disorder) without hyperactivity F98.8 Frequent falls R29.6 Prediabetes R73.03 Elevated troponin R79.89 Hypothyroidism E03.9 (1) Rhabdomyolysis Rhabdomyolysis type: non-traumatic Qualified Code(s): M62.82 - Rhabdomyolysis (2) Lower extremity pain Laterality: left Qualified Code(s): M79.605 - Pain in left leg
[2019-10-15] MEDS ORDERED: ONDANSETRON INJ 2 MG/ML 2 ML VIAL IV PRN (19:20)
[2019-10-15] MEDS ORDERED: ACETAMINOPHEN 325 MG TAB PO PRN (19:20)
[2019-10-15] MEDS ORDERED: MAGNESIUM HYDROXIDE SUSP 30 ML UDC PO PRN (19:20)
[2019-10-15] MEDS ORDERED: NITROGLYCERIN SL 0.4 MG/TAB TAB SL PRN (19:20)
[2019-10-15] MEDS ORDERED: ALUMINUM/MAGNESIUM SUSP 30 ML UDC PO PRN (19:20)
[2019-10-15] MEDS ORDERED: POLYETHYLENE (MIRALAX) 17 GM PACK PO PRN (19:20)
[2019-10-15] MEDS ORDERED: PNEUMOCOCCAL ADMINISTRATION CHARGE ONE (20:33)
[2019-10-15] MEDS ORDERED: PNEUMOCOCCAL POLYSACCHARIDES 25 MCG/0.5 ML VIAL/SYR IM ONE (20:33)
[2019-10-15] MEDS: GABAPENTIN 300 MG CAP PO SCH (20:52)
[2019-10-15] MEDS: ALPRAZolam 0.5 MG TABLET PO SCH (20:52)
[2019-10-15] MEDS: NSS + 20MEQ KCL 20 MEQ/1,000 ML BAG IV SCH (20:52)
[2019-10-15] MEDS: METHYLPHENIDATE HCL 10 MG TABLET PO SCH ×2 (21:00→21:03)
[2019-10-16 01:28] LABS: Basophils # (auto) 0.03 K/uL (0-0.2); Basophils % (auto) 0.3 %; Eosinophils # (auto) 0.04 K/uL (0-0.5); Eosinophils % (auto) 0.5 %; Hematocrit (blood only) 35.6 % (37-47); Hemoglobin 11.9 g/dL (12.0-16.0); Immature Granulocytes # (auto) 0.02 K/uL (0.00-0.02); Immature Granulocytes % (auto) 0.2 %; Lymphocytes # (auto) 2.33 K/uL (1.2-3.4); Lymphocytes % (auto) 27.1 %; Mean Corpuscular Hgb Conc 33.4 g/dL (32-36); Mean Corpuscular Volume 89.7 fL (80-100); Mean Platelet Volume 9.3 fL (7.4-10.4); Monocytes % (auto) 12.8 %; Neutrophils # (auto) 5.08 K/uL (1.4-6.5); Neutrophils % (auto) 59.1 %; Platelet Count 251 K/uL (130-400); RDW Coefficient of Variation 13.5 % (11.5-14.5); RDW Standard Deviation 44.4 fL (36.4-46.3); Red Blood Count 3.97 M/uL (4.2-5.4)
[2019-10-16 02:10] LABS: Albumin Globulin Ratio 0.8 (0.9-2); Albumin Level 2.8 gm/dl (3.4-5.0); BUN Creatinine Ratio 13.9 (10-20); Bilirubin,Total 1.3 mg/dl (0.2-1); Calcium 8.1 mg/dl (8.5-10.1); Creatinine Clr Calc Pharmacy 65.9 ml/min; Est GFR (African American) 103.3; Est GFR (Non-African American) 89.1; Globulin 3.5 gm/dl (2.5-4.0); Potassium 3.6 mmol/L (3.5-5.1); Total Protein 6.3 gm/dl (6.4-8.2)
[2019-10-16 02:13] LABS: Hepatitis B Surface Antigen Neg (Neg)
[2019-10-16 02:41] LABS: Act87 Hepatitis C IgG Screen Neg (Neg); Hepatitis C IgG 13Yrs+Old_Rflx Neg (Neg)
[2019-10-16] MEDS: LEVOTHYROXINE SODIUM 75 MCG TABLET PO SCH (06:04)
[2019-10-16 06:25] LABS: Estimated Average Glucose 120 mg/dl; Hemoglobin A1C 5.8 % (4.5-5.6)
--- NOTE | 2019-10-16 06:32 | Electrocardiogram Report ---
Test Reason : Blood Pressure : / mmHG Vent. Rate : 103 BPM Atrial Rate : 103 BPM P-R Int : 184 ms QRS Dur : 080 ms QT Int : 342 ms P-R-T Axes : 062 009 078 degrees QTc Int : 448 ms Sinus tachycardia Possible Anterior infarct , age undetermined Abnormal ECG When compared with ECG of 10-SEP-2016 12:43, Nonspecific T wave abnormality has replaced inverted T waves in Lateral leads Confirmed by Rik Hathaway ([id number]) on 10/16/2019 6:32:07 AM Referred By: REFERRED SELF Confirmed By:Rik Hathaway
[2019-10-16] MEDS: GABAPENTIN 300 MG CAP PO SCH ×3 (08:04→21:15)
[2019-10-16] MEDS: LIDOCAINE 5% 1 PATCH TD SCH (08:05)
[2019-10-16] MEDS: METHYLPHENIDATE HCL 10 MG TABLET PO SCH ×3 (08:06→21:33)
[2019-10-16] MEDS: NSS + 20MEQ KCL 20 MEQ/1,000 ML BAG IV SCH ×3 (08:10→23:05)
[2019-10-16] MEDS ORDERED: POTASSIUM CHLORIDE 20 MEQ TABCR PO SCH (09:00)
[2019-10-16] MEDS: ALPRAZolam 0.5 MG TABLET PO SCH ×3 (10:16→21:14)
[2019-10-16] MEDS ORDERED: CONSULT PHARMACY STA (10:28)
[2019-10-16] MEDS ORDERED: VANCOMYCIN CONSULT ACTIVE PRN (10:35)
[2019-10-16] MEDS ORDERED: VANCOMYCIN HCL 1,500 MG in SODIUM CHLORIDE 0.9% 500 ML IV ONE (10:45)
[2019-10-16] MEDS: cefTRIAXone SODIUM 2,000 MG in DEXTROSE 5% 50 ML IV SCH (11:05)
--- NOTE | 2019-10-16 11:15 | Pharmacy Report ---
Pharmacy Abx Initial Consult - Date of Service October 16, 2019 - Pharmacy Dosing Scope Date of Consult: 10/16/19 Consultation requested by: Jania Chong PA-C Pharmacy is consulted to initiate vancomycin IV dosing therapy, order appropriate labs and adjust drug dose/frequency. - Subjective The patient is a 64 year old F admitted on 10/15/19 17:20. - Objective Height: 5 ft Weight: 63.7 kg Vital Signs (Past 12hrs): Vital Signs Temp Pulse Pulse Resp BP BP Pulse Ox 10/16/19 07:25 36.9 C 90 18 118/78 96 10/16/19 04:02 36.9 C 98 H 20 126/80 96 10/15/19 23:12 37.3 C 104 H 18 148/70 H 90 Lab Results (24hrs): Laboratory Tests (24 Hours) 10/16/19 10/16/19 10/15/19 01:13 01:13 12:50 WBC 8.60 Neut # (Auto) 5.08 Creatinine 0.72 0.90 Est Cr Clr Drug Dosing 65.9 52.3 Total Creatine Kinase 29298 H 49008 H 10/15/19 12:50 WBC 12.88 H Neut # (Auto) 9.26 H Creatinine Est Cr Clr Drug Dosing Total Creatine Kinase - Assessment & Plan Assessment 64 year old F ordered empiric vancomycin and ceftriaxone for cellulitis of right great toe. Patient presented to [facility] ED on 10/15/19 s/p multiple falls. Patient also reports increasing confusion and that she has possibly been on the floor for two days. Creatinine kinase in ED: 08536. Antibiotics ordered on day #2 of admission. Plan Vancomycin IV * Estimated PK Parameters: Vd 0.7 L/kg, Juan 0.055 hr-1, t1/2 12.6 hr * Loading dose: 1500 mg (24 mg/kg) * Maintenance dose: 1000 mg IV (15 mg/kg) every 12 hours * Will utilize AUC-based dosing and attempt to achieve AUC:KIMBERLY greater than 400 * Trough ordered for 10/18/19 at 1030 prior to 5th dose Ceftriaxone IV * 2 g IV q24h - dose appropriate Pharmacy will continue to follow and will adjust dose/frequency as necessary. Thank you.
[2019-10-16] MEDS ORDERED: ASPIRIN/ALUM/MAGNES/CAL CARB 325 MG TAB PO PRN (13:38)
--- NOTE | 2019-10-16 13:50 | Hospitalist Progress Note ---
Date of Service October 16, 2019 Assessment & Plan (1) Rhabdomyolysis: - Pt. cannot recall how long she laid on the ground prior to calling for help -- possibly up to 48 hours. - CK level 30,897 on admission, will repeat level on 10/17/19. Also has associated elevated LFTs. - IV fluids at 150 cc/hr for aggressive hydration (Echo was negative for systolic dysfunction) - Pain management with Aspirin q8hr prn (is refusing Tylenol due to LFTs) (2) Transaminitis: - Elevated LFTs in setting of rhabdo. - CT A/P negative for acute liver abnormalities; consider US of liver if no improvement. - Hepatitis panel pending. - Monitor LFTs daily. (3) Cellulitis: - Right first toe cellulitis. - Started Ceftriaxone and Vancomycin (h/o MRSA) - Will obtain wound culture if discharge is present on wound. (4) Urinary retention: - Placed caruso on admission. - Continue Flomax 0.4 mg daily. - Will need trial of voiding prior to discharge. (5) Frequent falls: - Fall etiology is unclear and it is very difficult to obtain accurate history from patient -- she reports that she was laying on the ground at home and could not stand up due to leg weakness. It is hard to evaluate if she had leg weakness prior to developing rhabdo or if there is an underlying spinal issue leading to leg weakness. - PT/OT evaluation for discharge planning. (6) Prediabetes: - A1C is 5.8. - Encourage carb consistent diet and weight loss. (7) Elevated troponin: - Trop peaked at 0.075, possibly related to elevated CK. - Echo neg for wall motion abnormalities. - No indication for further monitoring. (8) Hypothyroidism: - TSH is 0.074. - Holding Synthroid -- recommend to f/u with outpatient PCP. Is likely leading to increased anxiety/distress as well. (9) Post traumatic stress disorder (PTSD): - With possible history of schizophrenia and bipolar disorder. - Continue Xanax 1 mg TID scheduled. (10) Hypercholesteremia: - Total chol level 236, Trig 255, LDL 137. - Will need to discuss starting statin agent with PCP. (11) ADD (attention deficit disorder) without hyperactivity: - Continue home methylphenidate 20 mg BID. DVT ppx: SCDs. Dispo: Med/surg with tele for treatment of rhabdo. Subjective Pt. c/o generalized achiness and pain -- mostly in joints and muscles but also has chronic pain in pelvis related to previous fractures. Has caruso in place, good urine output. C/o right first toe redness with discharge -- related to cellulitis. Pt. cannot recall when redness started but she does note that wound has pus like discharge this morning. Redness extends up to the midfoot on exam, is slightly tender to palpation. Adequate pulse noted in right foot. Will continue fluids at 150 cc/hr and monitor CK level in the morning. Review of Systems Review of Systems: All systems reviewed & are unremarkable except as noted in HPI & below Constitutional: + fatigue and + weakness; no fever, no chills and no anorexia Respiratory: no cough, no dyspnea and no dyspnea on exertion Cardiovascular: no chest pain, no palpitations and no edema Gastrointestinal: no abdominal pain, no nausea, no vomiting and no constipation Genitourinary: + difficulty urinating Musculoskeletal: + joint pain, + myalgia and + body aches; no back pain Integumentary: + non-healing lesions and + erythema Physical Exam Physical Exam: General: Mild distress, appears anxious on exam. HEENT: NC/AT; PERRLA with EOMI; [place] conjunctiva, MMM. No erythema of posterior pharynx Neck: Supple and nontender Cardiac: RRR Lungs: CTA bilaterally Abdomen: Bowel normoactive X 4; Nontender to palpation Extremities: Warm. No edema present Neuro: No focal weakness Skin: Right first toe with significant erythema; no open wounds noted. Erythema does extend up to right midfoot area to area of demarcation. Results & Data Vital Signs (Past 12 Hours) Vital Signs Temp Pulse Pulse Resp BP Pulse Ox 10/16/19 11:36 101 H 10/16/19 11:32 37.3 C 96 H 18 134/77 94 10/16/19 07:25 36.9 C 90 18 118/78 96 10/16/19 04:02 36.9 C 98 H 20 126/80 96 Laboratory Results 10/16/19 10/16/19 10/16/19 Range/Units 01:13 01:13 01:13 WBC 8.60 (4.8-10.8) K/uL RBC 3.97 L (4.2-5.4) M/uL Hgb 11.9 L (12.0-16.0) g/dL Hct 35.6 L (37-47) % MCV 89.7 (80-100) fL MCH 30.0 (25-34) pg MCHC 33.4 (32-36) g/dL RDW Std Deviation 44.4 (36.4-46.3) fL RDW Coeff of Romario 13.5 (11.5-14.5) % Plt Count 251 (130-400) K/uL MPV 9.3 (7.4-10.4) fL Immature Gran % (Auto) 0.2 % Neut % (Auto) 59.1 % Lymph % (Auto) 27.1 % [place] % (Auto) 12.8 % Eos % (Auto) 0.5 % Baso % (Auto) 0.3 % Immature Gran # (Auto) 0.02 (0.00-0.02) K/uL Neut # (Auto) 5.08 (1.4-6.5) K/uL Lymph # (Auto) 2.33 (1.2-3.4) K/uL [place] # (Auto) 1.10 H (0.11-0.59) K/uL Eos # (Auto) 0.04 (0-0.5) K/uL Baso # (Auto) 0.03 (0-0.2) K/uL Sodium 145 D (136-145) mmol/L Potassium 3.6 (3.5-5.1) mmol/L Chloride 115 H (98-107) mmol/L Carbon Dioxide 27 (21-32) mmol/L Anion Gap 3.0 (3-11) BUN 10 D (7-18) mg/dl Creatinine 0.72 (0.6-1.2) mg/dl Est Cr Clr Drug Dosing 65.9 ml/min Est GFR ( Amer) 103.3 Est GFR (Non-Af Amer) 89.1 BUN/Creatinine Ratio 13.9 (10-20) Glucose 123 H (70-99) mg/dl Estimat Average Glucose 120 mg/dl Hemoglobin A1c 5.8 H (4.5-5.6) % Calcium 8.1 L (8.5-10.1) mg/dl Total Bilirubin 1.3 H (0.2-1) mg/dl AST 556 H (15-37) U/L ALT 247 H (12-78) U/L Alkaline Phosphatase 114 (45-117) U/L Total Creatine Kinase 07869 H (26-192) U/L Troponin I (0-0.045) ng/ml Total Protein 6.3 L (6.4-8.2) gm/dl Albumin 2.8 L (3.4-5.0) gm/dl Globulin 3.5 (2.5-4.0) gm/dl Albumin/Globulin Ratio 0.8 L (0.9-2) Triglycerides 255 H (0-150) mg/dl Cholesterol 236 H (0-200) mg/dl LDL Cholesterol, Calc 137 mg/dl VLDL Cholesterol, Calc 51 mg/dl HDL Cholesterol 48 mg/dl Cholesterol/HDL Ratio 5 TSH (0.300-4.500) uIu/ml Free T4 (0.8-1.6) ng/dl Salicylates (2.8-20) mg/dl Acetaminophen (10-30) ug/ml Hepatitis A IgM Ab Hep Bs Antigen (Neg) Hep B Core IgM Ab Hepatitis C Ab Screen (Neg) Hepatitis C Antibody (Neg) 10/16/19 10/16/19 10/16/19 Range/Units 01:13 01:13 01:13 WBC (4.8-10.8) K/uL RBC (4.2-5.4) M/uL Hgb (12.0-16.0) g/dL Hct (37-47) % MCV (80-100) fL MCH (25-34) pg MCHC (32-36) g/dL RDW Std Deviation (36.4-46.3) fL RDW Coeff of Romario (11.5-14.5) % Plt Count (130-400) K/uL MPV (7.4-10.4) fL Immature Gran % (Auto) % Neut % (Auto) % Lymph % (Auto) % [place] % (Auto) % Eos % (Auto) % Baso % (Auto) % Immature Gran # (Auto) (0.00-0.02) K/uL Neut # (Auto) (1.4-6.5) K/uL Lymph # (Auto) (1.2-3.4) K/uL [place] # (Auto) (0.11-0.59) K/uL Eos # (Auto) (0-0.5) K/uL Baso # (Auto) (0-0.2) K/uL Sodium (136-145) mmol/L Potassium (3.5-5.1) mmol/L Chloride (98-107) mmol/L Carbon Dioxide (21-32) mmol/L Anion Gap (3-11) BUN (7-18) mg/dl Creatinine (0.6-1.2) mg/dl Est Cr Clr Drug Dosing ml/min Est GFR ( Amer) Est GFR (Non-Af Amer) BUN/Creatinine Ratio (10-20) Glucose (70-99) mg/dl Estimat Average Glucose mg/dl Hemoglobin A1c (4.5-5.6) % Calcium (8.5-10.1) mg/dl Total Bilirubin (0.2-1) mg/dl AST (15-37) U/L ALT (12-78) U/L Alkaline Phosphatase (45-117) U/L Total Creatine Kinase (26-192) U/L Troponin I 0.048 H* (0-0.045) ng/ml Total Protein (6.4-8.2) gm/dl Albumin (3.4-5.0) gm/dl Globulin (2.5-4.0) gm/dl Albumin/Globulin Ratio (0.9-2) Triglycerides (0-150) mg/dl Cholesterol (0-200) mg/dl LDL Cholesterol, Calc mg/dl VLDL Cholesterol, Calc mg/dl HDL Cholesterol mg/dl Cholesterol/HDL Ratio TSH (0.300-4.500) uIu/ml Free T4 (0.8-1.6) ng/dl Salicylates (2.8-20) mg/dl Acetaminophen (10-30) ug/ml Hepatitis A IgM Ab Pending Hep Bs Antigen Neg (Neg) Hep B Core IgM Ab Pending Hepatitis C Ab Screen Neg (Neg) Hepatitis C Antibody Neg (Neg) 10/15/19 10/15/19 10/15/19 Range/Units 19:30 12:50 12:50 WBC (4.8-10.8) K/uL RBC (4.2-5.4) M/uL Hgb (12.0-16.0) g/dL Hct (37-47) % MCV (80-100) fL MCH (25-34) pg MCHC (32-36) g/dL RDW Std Deviation (36.4-46.3) fL RDW Coeff of Romario (11.5-14.5) % Plt Count (130-400) K/uL MPV (7.4-10.4) fL Immature Gran % (Auto) % Neut % (Auto) % Lymph % (Auto) % [place] % (Auto) % Eos % (Auto) % Baso % (Auto) % Immature Gran # (Auto) (0.00-0.02) K/uL Neut # (Auto) (1.4-6.5) K/uL Lymph # (Auto) (1.2-3.4) K/uL [place] # (Auto) (0.11-0.59) K/uL Eos # (Auto) (0-0.5) K/uL Baso # (Auto) (0-0.2) K/uL Sodium (136-145) mmol/L Potassium (3.5-5.1) mmol/L Chloride (98-107) mmol/L Carbon Dioxide (21-32) mmol/L Anion Gap (3-11) BUN (7-18) mg/dl Creatinine (0.6-1.2) mg/dl Est Cr Clr Drug Dosing ml/min Est GFR ( Amer) Est GFR (Non-Af Amer) BUN/Creatinine Ratio (10-20) Glucose (70-99) mg/dl Estimat Average Glucose mg/dl Hemoglobin A1c (4.5-5.6) % Calcium (8.5-10.1) mg/dl Total Bilirubin 1.2 H (0.2-1) mg/dl AST (15-37) U/L ALT (12-78) U/L Alkaline Phosphatase 117 (45-117) U/L Total Creatine Kinase 46201 H (26-192) U/L Troponin I 0.075 H* 0.047 H* (0-0.045) ng/ml Total Protein 7.8 (6.4-8.2) gm/dl Albumin (3.4-5.0) gm/dl Globulin 4.1 H (2.5-4.0) gm/dl Albumin/Globulin Ratio 0.9 (0.9-2) Triglycerides (0-150) mg/dl Cholesterol (0-200) mg/dl LDL Cholesterol, Calc mg/dl VLDL Cholesterol, Calc mg/dl HDL Cholesterol mg/dl Cholesterol/HDL Ratio TSH 0.074 L (0.300-4.500) uIu/ml Free T4 2.10 H (0.8-1.6) ng/dl Salicylates < 1.7 L (2.8-20) mg/dl Acetaminophen < 2 L (10-30) ug/ml Hepatitis A IgM Ab Hep Bs Antigen (Neg) Hep B Core IgM Ab Hepatitis C Ab Screen (Neg) Hepatitis C Antibody (Neg) PG Care Time/CCT Total # of Minutes Spent Total Time Spent with Patient: Total time spent is greater than 50% in coordination of care (as documented) at patient's floor/unit and/or counseling patient: Coding Level of Care Code 08475 Subseq Hosp Care Lvl 3 Diagnoses Rhabdomyolysis M6.82 Rhabdomyolysis type: non-traumatic Transaminitis R74.0 Cellulitis L03.90 Urinary retention R33.9 Frequent falls R29.6 Prediabetes R73.03 Elevated troponin R79.89 Hypothyroidism E03.9 Post traumatic stress disorder (PTSD) F43.10 Hypercholesteremia E78.00 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
[2019-10-16] MEDS: TAMSULOSIN HCL 0.4 MG CAP PO SCH (21:15)
[2019-10-16] MEDS: VANCOMYCIN HCL 1,000 MG in SODIUM CHLORIDE 0.9% 250 ML IV SCH (23:05)
[2019-10-17] MEDS: LEVOTHYROXINE SODIUM 75 MCG TABLET PO SCH (05:48)
[2019-10-17 06:52] LABS: Basophils # (auto) 0.05 K/uL (0-0.2); Basophils % (auto) 0.6 %; Eosinophils # (auto) 0.23 K/uL (0-0.5); Eosinophils % (auto) 2.9 %; Hemoglobin 12.5 g/dL (12.0-16.0); Immature Granulocytes # (auto) 0.03 K/uL (0.00-0.02); Immature Granulocytes % (auto) 0.4 %; Lymphocytes # (auto) 2.19 K/uL (1.2-3.4); Lymphocytes % (auto) 27.6 %; Mean Corpuscular Hemoglobin 29.8 pg (25-34); Mean Corpuscular Hgb Conc 32.1 g/dL (32-36); Mean Corpuscular Volume 92.9 fL (80-100); Mean Platelet Volume 9.4 fL (7.4-10.4); Monocytes # (auto) 0.84 K/uL (0.11-0.59); Monocytes % (auto) 10.6 %; Neutrophils % (auto) 57.9 %; Platelet Count 290 K/uL (130-400); RDW Coefficient of Variation 13.9 % (11.5-14.5); RDW Standard Deviation 47.1 fL (36.4-46.3); White Blood Count 7.94 K/uL (4.8-10.8)
[2019-10-17 07:21] LABS: Albumin Level 2.8 gm/dl (3.4-5.0); BUN Creatinine Ratio 13.6 (10-20); Calcium 8.8 mg/dl (8.5-10.1); Creatinine Clr Calc Pharmacy 80.3 ml/min; Est GFR (African American) 112.4; Potassium 4.4 mmol/L (3.5-5.1)
[2019-10-17 07:57] LABS: Albumin Globulin Ratio 0.7 (0.9-2); Bilirubin,Total 0.7 mg/dl (0.2-1); Globulin 3.8 gm/dl (2.5-4.0); Total Protein 6.6 gm/dl (6.4-8.2)
[2019-10-17] MEDS: LIDOCAINE 5% 1 PATCH TD SCH (08:33)
[2019-10-17] MEDS: GABAPENTIN 300 MG CAP PO SCH ×3 (08:33→20:43)
[2019-10-17] MEDS: METHYLPHENIDATE HCL 10 MG TABLET PO SCH ×2 (08:34→20:44)
[2019-10-17] MEDS: cefTRIAXone SODIUM 2,000 MG in DEXTROSE 5% 50 ML IV SCH ×3 (08:36→09:07)
[2019-10-17] MEDS: LACTATED RINGER'S 1,000 ML IV SCH ×3 (09:54→22:23)
[2019-10-17] MEDS: VANCOMYCIN HCL 1,000 MG in SODIUM CHLORIDE 0.9% 250 ML IV SCH ×2 (10:54→22:38)
[2019-10-17 10:55] LABS: Hepatitis A Antibody IgM NON-REACTIVE (NON-REACTIVE); Hepatitis B Core Antibody IgM NON-REACTIVE (NON-REACTIVE)
--- NOTE | 2019-10-17 12:02 | Hospitalist Progress Note ---
Date of Service October 17, 2019 Assessment & Plan (1) Rhabdomyolysis: - Pt. cannot recall how long she laid on the ground prior to calling for help -- possibly up to 48 hours. - CK level 30,897 on admission, repeat level this morning was 11,103; monitor levels daily. - Has associated elevation in LFTs, continue to monitor. - IV fluids at 100 cc/hr (echo was negative for systolic dysfunction) - Pain management with Aspirin q8hr prn (refusing Tylenol due to LFTs) (2) Transaminitis: - Elevated LFTs in setting of rhabdo; remain elevated on AM labs. - CT A/P negative for acute liver abnormalities; consider US of liver. - Hepatitis panel negative. - Monitor LFTs qAM. (3) Cellulitis: - Right first toe cellulitis; erythema is improving overall on exam. - Wound culture pending. - Continue Ceftriaxone and Vancomycin (h/o MRSA) (4) Urinary retention: - Placed caruso on admission. - Continue Flomax 0.4 mg daily. - Will need trial of voiding prior to discharge, likely on Friday or Friday. (5) Frequent falls: - Fall etiology is unclear and it is very difficult to obtain accurate history from patient -- tt is hard to evaluate if she had leg weakness prior to developing rhabdo or if there is an underlying spinal issue leading to leg weakness. - PT/OT evaluation for discharge planning. (6) Prediabetes: - A1C is 5.8. - Encourage carb consistent diet and weight loss. (7) Elevated troponin: - Trop peaked at 0.075, possibly related to elevated CK. - Echo neg for wall motion abnormalities. (8) Hypothyroidism: - TSH is 0.074. - Hold Synthroid -- recommend to f/u with outpatient PCP. Is likely leading to increased anxiety/distress as well. (9) Post traumatic stress disorder (PTSD): - With possible history of schizophrenia and bipolar disorder. - Xanax 2 mg PO qhs scheduled. (10) Hypercholesteremia: - Total chol level 236, Trig 255, LDL 137. - Discuss starting statin agent with PCP. (11) ADD (attention deficit disorder) without hyperactivity: - Continue home methylphenidate 20 mg BID. DVT ppx: SCDs. Dispo: Med/surg with tele for treatment of rhabdo. Discharge likely on Friday or Friday pending improvement in myalgias and LFTs. Subjective Pt. c/o generalized pain all over along with headache and nausea. Has caruso in with good output. Redness in right first toe is improving overall, continues to c/o pain in right foot related to cellulitis. CK level trending down, on IV fluids at 150 cc/hr. Review of Systems Review of Systems: All systems reviewed & are unremarkable except as noted in HPI & below Constitutional: + fatigue, + weakness and + anorexia; no fever and no chills Respiratory: no cough, no dyspnea and no dyspnea on exertion Cardiovascular: no chest pain, no palpitations and no edema Gastrointestinal: + nausea; no abdominal pain, no vomiting and no constipation Genitourinary: no difficulty urinating Musculoskeletal: + myalgia and + body aches; no back pain and no joint pain Integumentary: + non-healing lesions and + erythema; no skin ulcer Physical Exam Physical Exam: General: No acute distress noted on exam, resting comfortably. HEENT: NC/AT; PERRLA with EOMI; [place] conjunctiva, MMM. No erythema of posterior pharynx Neck: Supple and nontender Cardiac: RRR Lungs: CTA bilaterally Abdomen: Bowel normoactive X 4; Nontender to palpation Extremities: Warm. No edema present Neuro: No focal weakness Skin: Right first toe with improvement in erythema, erythema noted extending up to midfoot is now resolved; no discharge noted. Nontender to palpation. Results & Data Vital Signs (Past 12 Hours) Vital Signs Temp Pulse Pulse Resp BP BP Pulse Ox 10/17/19 11:32 36.7 C 90 16 132/81 95 10/17/19 09:00 85 10/17/19 07:40 36.5 C 89 18 144/86 H 98 10/17/19 03:53 36.9 C 89 18 131/75 96 Laboratory Results 10/17/19 10/17/19 10/16/19 Range/Units 06:34 06:34 01:13 WBC 7.94 (4.8-10.8) K/uL RBC 4.20 (4.2-5.4) M/uL Hgb 12.5 (12.0-16.0) g/dL Hct 39.0 (37-47) % MCV 92.9 (80-100) fL MCH 29.8 (25-34) pg MCHC 32.1 (32-36) g/dL RDW Std Deviation 47.1 H (36.4-46.3) fL RDW Coeff of Romario 13.9 (11.5-14.5) % Plt Count 290 (130-400) K/uL MPV 9.4 (7.4-10.4) fL Immature Gran % (Auto) 0.4 % Neut % (Auto) 57.9 % Lymph % (Auto) 27.6 % [place] % (Auto) 10.6 % Eos % (Auto) 2.9 % Baso % (Auto) 0.6 % Immature Gran # (Auto) 0.03 H (0.00-0.02) K/uL Neut # (Auto) 4.60 (1.4-6.5) K/uL Lymph # (Auto) 2.19 (1.2-3.4) K/uL [place] # (Auto) 0.84 H (0.11-0.59) K/uL Eos # (Auto) 0.23 (0-0.5) K/uL Baso # (Auto) 0.05 (0-0.2) K/uL Sodium 145 (136-145) mmol/L Potassium 4.4 D (3.5-5.1) mmol/L Chloride 117 H (98-107) mmol/L Carbon Dioxide 26 (21-32) mmol/L Anion Gap 2.0 L (3-11) BUN 8 (7-18) mg/dl Creatinine 0.60 (0.6-1.2) mg/dl Est Cr Clr Drug Dosing 80.3 ml/min Est GFR ( Amer) 112.4 Est GFR (Non-Af Amer) 97.0 BUN/Creatinine Ratio 13.6 (10-20) Glucose 107 H (70-99) mg/dl Calcium 8.8 (8.5-10.1) mg/dl Total Bilirubin 0.7 D (0.2-1) mg/dl AST 340 H (15-37) U/L ALT 255 H (12-78) U/L Alkaline Phosphatase 134 H (45-117) U/L Total Creatine Kinase 95029 H (26-192) U/L Total Protein 6.6 (6.4-8.2) gm/dl Albumin 2.8 L (3.4-5.0) gm/dl Globulin 3.8 (2.5-4.0) gm/dl Albumin/Globulin Ratio 0.7 L (0.9-2) Hepatitis A IgM Ab NON-REACTIVE (NON-REACTIVE) Hep B Core IgM Ab NON-REACTIVE (NON-REACTIVE) PG Care Time/CCT Total # of Minutes Spent Total Time Spent with Patient: Total time spent is greater than 50% in coordination of care (as documented) at patient's floor/unit and/or counseling patient: Coding Level of Care Code 70896 Subseq Hosp Care Lvl 3 Diagnoses Rhabdomyolysis M62.82 Rhabdomyolysis type: non-traumatic Transaminitis R74.0 Cellulitis L03.90 Urinary retention R33.9 Frequent falls R29.6 Prediabetes R73.03 Elevated troponin R79.89 Hypothyroidism E03.9 Post traumatic stress disorder (PTSD) F43.10 Hypercholesteremia E78.00 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
[2019-10-17] MEDS: ALPRAZolam 0.5 MG TABLET PO SCH (20:41)
[2019-10-17] MEDS: TAMSULOSIN HCL 0.4 MG CAP PO SCH ×2 (20:41→20:45)
[2019-10-18 02:36] LABS: 7-Aminoclonaz, Confirm NEGATIVE ng/mL (<25); Hydro-Alp Ur, GC/MS 964 ng/mL (<25); Hydroxyethylflurazepam, Conf NEGATIVE ng/mL (<50); Hydroxytriazolam NEGATIVE ng/mL (<50); Lorazepam, Ur GC/MS NEGATIVE ng/mL (<50); Nordiazepam, Confirm NEGATIVE ng/mL (<50); Oxazepam Ur, GC/MS NEGATIVE ng/mL (<50); Temazepam, Confirm NEGATIVE ng/mL (<50)
[2019-10-18] MEDS: LIDOCAINE 5% 1 PATCH TD SCH (08:09)
[2019-10-18] MEDS: GABAPENTIN 300 MG CAP PO SCH ×3 (08:10→20:12)
[2019-10-18 08:12] LABS: Basophils # (auto) 0.05 K/uL (0-0.2); Basophils % (auto) 0.6 %; Eosinophils # (auto) 0.36 K/uL (0-0.5); Eosinophils % (auto) 4.6 %; Hematocrit (blood only) 39.2 % (37-47); Immature Granulocytes # (auto) 0.03 K/uL (0.00-0.02); Immature Granulocytes % (auto) 0.4 %; Lymphocytes # (auto) 2.56 K/uL (1.2-3.4); Lymphocytes % (auto) 32.5 %; Mean Corpuscular Hemoglobin 30.4 pg (25-34); Mean Corpuscular Hgb Conc 33.2 g/dL (32-36); Mean Corpuscular Volume 91.6 fL (80-100); Mean Platelet Volume 9.6 fL (7.4-10.4); Monocytes # (auto) 0.63 K/uL (0.11-0.59); Neutrophils # (auto) 4.25 K/uL (1.4-6.5); Neutrophils % (auto) 53.9 %; Platelet Count 301 K/uL (130-400); RDW Coefficient of Variation 13.6 % (11.5-14.5); RDW Standard Deviation 45.2 fL (36.4-46.3); Red Blood Count 4.28 M/uL (4.2-5.4); White Blood Count 7.88 K/uL (4.8-10.8)
[2019-10-18] MEDS: METHYLPHENIDATE HCL 10 MG TABLET PO SCH ×2 (08:17→16:12)
[2019-10-18] MEDS: cefTRIAXone SODIUM 2,000 MG in DEXTROSE 5% 50 ML IV SCH (08:17)
[2019-10-18] MEDS: LACTATED RINGER'S 1,000 ML IV SCH (08:20)
[2019-10-18 08:49] LABS: Albumin Level 2.9 gm/dl (3.4-5.0); Calcium 9.5 mg/dl (8.5-10.1); Creatinine Clr Calc Pharmacy 67.7 ml/min; Est GFR (African American) 107.4; Est GFR (Non-African American) 92.6; Potassium 3.9 mmol/L (3.5-5.1)
[2019-10-18 09:04] LABS: Albumin Globulin Ratio 0.7 (0.9-2); Bilirubin,Total 0.5 mg/dl (0.2-1); Globulin 4.1 gm/dl (2.5-4.0)
[2019-10-18] MEDS ORDERED: VANCOMYCIN TROUGH ONE (10:30)
[2019-10-18] MEDS: VANCOMYCIN HCL 1,000 MG in SODIUM CHLORIDE 0.9% 250 ML IV SCH (11:12)
[2019-10-18] MEDS: CLINDAMYCIN HCL 150 MG CAP PO SCH ×2 (12:21→20:13)
[2019-10-18] MEDS: SACCHAROMYCES BOULARDII 250 MG CAP PO SCH (12:21)
[2019-10-18] MEDS: BACITRACIN OINT 15 GM TUBE EXT SCH ×2 (12:21→20:14)
--- NOTE | 2019-10-18 12:38 | Hospitalist Progress Note ---
Date of Service October 18, 2019 Assessment & Plan (1) Rhabdomyolysis: - Pt. cannot recall how long she laid on the ground prior to calling for help -- possibly up to 48 hours. - CK level 30,897 on admission, level improved to 5,000 this morning. Generalized myalgias also resolving. - Has associated elevation in LFTs, slightly improving. - D/c IV fluids - received adequate hydration. - Pain management with Aspirin q8hr prn. (2) Transaminitis: - Elevated LFTs in setting of rhabdo; remain elevated but improving over last 24 hours. - CT A/P negative for acute liver abnormalities. - Hepatitis panel negative. - Monitor LFTs daily. (3) Cellulitis: - Right first toe cellulitis; erythema is improving but pt. c/o increased pain in right foot. - XR of foot on day of admission neg for acute fracture or soft tissue abnormality; consider MRI of foot to evaluate for osteomyelitis. - Wound culture negative (prelim) - Convert Ceftriaxone and Vancomycin (h/o MRSA) to Clindamycin 450 mg q8hr with daily probiotic. - Pt. requested topical Bacitracin ointment -- apply q12hr. (4) Urinary retention: - Placed caruso on admission. - Continue Flomax 0.4 mg daily. - Remove caruso for voiding trial today. (5) Frequent falls: - Fall etiology is unclear and it is very difficult to obtain accurate history from patient -- tt is hard to evaluate if she had leg weakness prior to developing rhabdo or if there is an underlying spinal issue leading to leg weakness. - Pt. ambulated to the restroom without difficulty today. PT evaluation pending. (6) Prediabetes: - A1C is 5.8. - Carb consistent diet and weight loss. (7) Elevated troponin: - Trop peaked at 0.075, possibly related to elevated CK. - Echo neg for wall motion abnormalities. (8) Hypothyroidism: - TSH is 0.074. - Hold Synthroid -- recommend to f/u with outpatient PCP. Is likely leading to increased anxiety/distress as well. (9) Post traumatic stress disorder (PTSD): - With possible history of schizophrenia and bipolar disorder. - Xanax 2 mg PO qhs scheduled. (10) Hypercholesteremia: - Total chol level 236, Trig 255, LDL 137. - Discuss starting statin agent with PCP. (11) ADD (attention deficit disorder) without hyperactivity: - Continue home methylphenidate 20 mg BID. DVT ppx: SCDs. Dispo: Med/surg for treatment of rhabdo. Discharge likely tomorrow pending improvement in right foot cellulitis/pain. Subjective Pt. c/o increased right foot pain today -- redness is improving but pain has increased overall. XR on day of admission neg for fracture, soft tissue abnormality. Generalized muscle aches are significantly improved. Will remove caruso today, eval for urinary retention. Having regular BMs. Review of Systems Review of Systems: All systems reviewed & are unremarkable except as noted in HPI & below Constitutional: + fatigue and + weakness; no fever, no chills and no anorexia Respiratory: no cough, no dyspnea, no dyspnea on exertion and no wheezing Cardiovascular: no chest pain, no palpitations and no edema Gastrointestinal: no abdominal pain, no nausea, no vomiting and no constipation Genitourinary: no difficulty urinating Musculoskeletal: + joint pain (Right foot pain); no back pain Integumentary: + non-healing lesions, + sores and + erythema Physical Exam Physical Exam: General: Resting comfortably HEENT: NC/AT; PERRLA with EOMI; [place] conjunctiva, MMM. No erythema of posterior pharynx Neck: Supple and nontender Cardiac: RRR Lungs: CTA bilaterally Abdomen: Bowel normoactive X 4; Nontender to palpation Extremities: Warm. No edema present Neuro: No focal weakness Skin: No rash Results & Data Vital Signs (Past 12 Hours) Vital Signs Temp Pulse Pulse Resp BP BP Pulse Ox 10/18/19 10:56 36.7 C 111 H 20 143/82 H 94 10/18/19 07:41 82 10/18/19 07:19 36.9 C 92 H 20 128/68 92 10/18/19 03:30 36.6 C 85 16 148/87 H 91 Laboratory Results 10/18/19 10/18/19 10/18/19 Range/Units 10:28 07:37 07:37 WBC 7.88 (4.8-10.8) K/uL RBC 4.28 (4.2-5.4) M/uL Hgb 13.0 (12.0-16.0) g/dL Hct 39.2 (37-47) % MCV 91.6 (80-100) fL MCH 30.4 (25-34) pg MCHC 33.2 (32-36) g/dL RDW Std Deviation 45.2 (36.4-46.3) fL RDW Coeff of Romario 13.6 (11.5-14.5) % Plt Count 301 (130-400) K/uL MPV 9.6 (7.4-10.4) fL Immature Gran % (Auto) 0.4 % Neut % (Auto) 53.9 % Lymph % (Auto) 32.5 % [place] % (Auto) 8.0 % Eos % (Auto) 4.6 % Baso % (Auto) 0.6 % Immature Gran # (Auto) 0.03 H (0.00-0.02) K/uL Neut # (Auto) 4.25 (1.4-6.5) K/uL Lymph # (Auto) 2.56 (1.2-3.4) K/uL [place] # (Auto) 0.63 H (0.11-0.59) K/uL Eos # (Auto) 0.36 (0-0.5) K/uL Baso # (Auto) 0.05 (0-0.2) K/uL Sodium 142 (136-145) mmol/L Potassium 3.9 (3.5-5.1) mmol/L Chloride 109 H (98-107) mmol/L Carbon Dioxide 27 (21-32) mmol/L Anion Gap 6.0 (3-11) BUN 10 (7-18) mg/dl Creatinine 0.69 (0.6-1.2) mg/dl Est Cr Clr Drug Dosing 67.7 ml/min Est GFR ( Amer) 107.4 Est GFR (Non-Af Amer) 92.6 BUN/Creatinine Ratio 15.0 (10-20) Glucose 133 H (70-99) mg/dl Calcium 9.5 (8.5-10.1) mg/dl Total Bilirubin 0.5 (0.2-1) mg/dl AST 211 H (15-37) U/L ALT 196 H (12-78) U/L Alkaline Phosphatase 117 (45-117) U/L Total Creatine Kinase 5719 H (26-192) U/L Total Protein 7.0 (6.4-8.2) gm/dl Albumin 2.9 L (3.4-5.0) gm/dl Globulin 4.1 H (2.5-4.0) gm/dl Albumin/Globulin Ratio 0.7 L (0.9-2) Vancomycin Trough 9.5 (See Comment) mcg/ml U [place]-Alprazolam Confrm (<25) ng/mL 7-Amino Clonazepam (<25) ng/mL Ur Nordiazepam Confirm (<50) ng/mL U OH-ethylflurazepam (<50) ng/mL U Lorazepam Cnf GC/MS (<50) ng/mL U Oxazepam Confm GC/MS (<50) ng/mL Ur Temazepam Confirm (<50) ng/mL U OH-Triazolam Confirm (<50) ng/mL U OH-Midazolam Confirm (<50) ng/mL Drug Screen Comment 10/15/19 Range/Units 12:25 WBC (4.8-10.8) K/uL RBC (4.2-5.4) M/uL Hgb (12.0-16.0) g/dL Hct (37-47) % MCV (80-100) fL MCH (25-34) pg MCHC (32-36) g/dL RDW Std Deviation (36.4-46.3) fL RDW Coeff of Romario (11.5-14.5) % Plt Count (130-400) K/uL MPV (7.4-10.4) fL Immature Gran % (Auto) % Neut % (Auto) % Lymph % (Auto) % [place] % (Auto) % Eos % (Auto) % Baso % (Auto) % Immature Gran # (Auto) (0.00-0.02) K/uL Neut # (Auto) (1.4-6.5) K/uL Lymph # (Auto) (1.2-3.4) K/uL [place] # (Auto) (0.11-0.59) K/uL Eos # (Auto) (0-0.5) K/uL Baso # (Auto) (0-0.2) K/uL Sodium (136-145) mmol/L Potassium (3.5-5.1) mmol/L Chloride (98-107) mmol/L Carbon Dioxide (21-32) mmol/L Anion Gap (3-11) BUN (7-18) mg/dl Creatinine (0.6-1.2) mg/dl Est Cr Clr Drug Dosing ml/min Est GFR ( Amer) Est GFR (Non-Af Amer) BUN/Creatinine Ratio (10-20) Glucose (70-99) mg/dl Calcium (8.5-10.1) mg/dl Total Bilirubin (0.2-1) mg/dl AST (15-37) U/L ALT (12-78) U/L Alkaline Phosphatase (45-117) U/L Total Creatine Kinase (26-192) U/L Total Protein (6.4-8.2) gm/dl Albumin (3.4-5.0) gm/dl Globulin (2.5-4.0) gm/dl Albumin/Globulin Ratio (0.9-2) Vancomycin Trough (See Comment) mcg/ml U OH-Alprazolam Confrm 964 H (<25) ng/mL 7-Amino Clonazepam NEGATIVE (<25) ng/mL Ur Nordiazepam Confirm NEGATIVE (<50) ng/mL U OH-ethylflurazepam NEGATIVE (<50) ng/mL U Lorazepam Cnf GC/MS NEGATIVE (<50) ng/mL U Oxazepam Confm GC/MS NEGATIVE (<50) ng/mL Ur Temazepam Confirm NEGATIVE (<50) ng/mL U OH-Triazolam Confirm NEGATIVE (<50) ng/mL U OH-Midazolam Confirm NEGATIVE (<50) ng/mL Drug Screen Comment SEE NOTE PG Care Time/CCT Total # of Minutes Spent Total Time Spent with Patient: Total time spent is greater than 50% in coordination of care (as documented) at patient's floor/unit and/or counseling patient: Coding Level of Care Code 11554 Subseq Hosp Care Lvl 3 Diagnoses Rhabdomyolysis M6 Rhabdomyolysis type: non-traumatic Transaminitis R74.0 Cellulitis L03.90 Urinary retention R33.9 Frequent falls R29.6 Prediabetes R73.03 Elevated troponin R79.89 Hypothyroidism E03.9 Post traumatic stress disorder (PTSD) F43.10 Hypercholesteremia E78.00 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
[2019-10-18] MEDS ORDERED: Nursing to Pharmacy Communication ONE (15:15)
[2019-10-18] MEDS: ALPRAZolam 0.5 MG TABLET PO SCH (20:12)
[2019-10-18] MEDS: TAMSULOSIN HCL 0.4 MG CAP PO SCH ×2 (20:12→20:17)
[2019-10-18 23:15] VITALS: O2SAT 94
[2019-10-19] MEDS ORDERED: CLINDAMYCIN HCL 150 MG CAP PO SCH
[2019-10-19 07:13] LABS: Basophils # (auto) 0.04 K/uL (0-0.2); Basophils % (auto) 0.5 %; Eosinophils % (auto) 3.9 %; Hematocrit (blood only) 41.2 % (37-47); Hemoglobin 13.6 g/dL (12.0-16.0); Immature Granulocytes # (auto) 0.04 K/uL (0.00-0.02); Immature Granulocytes % (auto) 0.5 %; Lymphocytes # (auto) 1.84 K/uL (1.2-3.4); Lymphocytes % (auto) 24.2 %; Mean Corpuscular Volume 90.9 fL (80-100); Mean Platelet Volume 9.4 fL (7.4-10.4); Monocytes # (auto) 0.88 K/uL (0.11-0.59); Monocytes % (auto) 11.6 %; Neutrophils # (auto) 4.51 K/uL (1.4-6.5); Neutrophils % (auto) 59.3 %; Platelet Count 295 K/uL (130-400); RDW Coefficient of Variation 13.4 % (11.5-14.5); RDW Standard Deviation 44.7 fL (36.4-46.3); Red Blood Count 4.53 M/uL (4.2-5.4); White Blood Count 7.61 K/uL (4.8-10.8)
[2019-10-19 07:41] VITALS: TEMP 98.1
[2019-10-19 07:44] LABS: Albumin Level 3.1 gm/dl (3.4-5.0); BUN Creatinine Ratio 25.2 (10-20); C Reactive Protein 1.64 mg/dl (0-0.29); Calcium 9.6 mg/dl (8.5-10.1); Creatinine Clr Calc Pharmacy 70.8 ml/min
[2019-10-19 07:59] LABS: Albumin Globulin Ratio 0.7 (0.9-2); Bilirubin,Total 0.4 mg/dl (0.2-1); Globulin 4.3 gm/dl (2.5-4.0); Total Protein 7.4 gm/dl (6.4-8.2)
[2019-10-19] MEDS: CLINDAMYCIN HCL 150 MG CAP PO SCH ×2 (08:26→13:24)
[2019-10-19] MEDS: LIDOCAINE 5% 1 PATCH TD SCH (08:27)
[2019-10-19] MEDS: SACCHAROMYCES BOULARDII 250 MG CAP PO SCH (08:27)
[2019-10-19] MEDS: BACITRACIN OINT 15 GM TUBE EXT SCH (08:28)
[2019-10-19] MEDS: GABAPENTIN 300 MG CAP PO SCH ×3 (08:29→13:34)
[2019-10-19] MEDS: METHYLPHENIDATE HCL 10 MG TABLET PO SCH ×2 (08:34→13:30)
[2019-10-19 14:24] VITALS: BP 136/74; PULSE 104
[2019-10-19] MEDS ORDERED: METHYLPHENIDATE HCL 10 MG TABLET PO SCH (15:15)
--- NOTE | 2019-10-19 15:33 | Discharge Summary ---
Date of Service October 19, 2019 Admission HPI Per Admitting Provider The patient is a 64 years old female with attention deficit disorder, COPD, glaucoma, lumbar disc disease, posttraumatic stress disorder, prediabetes, schizotypal personality disorder tricuspid regurgitation who presents to the emergency room with a complaint of frequent falls. The patient states that she fell multiple times but does not recall how many times. Patient states that she was unloading groceries from the back of her truck when she fell. Patient reports having issues with urinating. She reports that her back hurts. Patient reports that she fell asleep on the floor last night but she is not sure how many days she spent sleeping like this possibly 2. Patient stated she fractured her right pelvis 3 years ago. She reports having a severe and constant left hip pain. Patient reports that she did not hit his head when she fell. EKG is reviewed and shows sinus tachycardia. Nonspecific ST segment elevation in V2 and V3. Labs are reviewed: WBC is 12.88, hemoglobin 14, hematocrit 41, platele ts 312, PT 9.8, INR 1, APTT 23.1, PTT ratio 0.9. VBG 7.41, PCO2 41, PO2 was 27, HCO3 25, grossly normal. Sodium 138, potassium 3.3, chloride 104, anion gap 10, BUN 20, creatinine 0.9, GFR 68,Magnesium 2.4, total bilirubin 1.2, AST 672, ALT 269, total creatinine kinase 48121, troponin elevated 0.047, globulin 4.1, TSH 0.0 74, free T4. 2.[address] of the head no acute intracranial abnormality or calvarial fracture. X-rays of the left hip: No acute osseous injury or advanced degenerative degenerative changes of the pelvis or the left hip. Right foot no acute osseous injury. Urine is cloudy with 3+ blood and negative leukocyte esterase and negative nitrates. Negative bacteria. Decision was made to admit patient for rhabdomyolysis, elevated CK and frequent falls. Admission Exam Per Admitting Provider Constitutional: WD/WN, vitals as above well developed and + obese Eyes: PERRL, conjunctivae normal, anicteric sclerae ENMT: external ear and nose normal, oropharynx normal Neck: trachea midline, no thyromegaly Respiratory: normal respiratory effort, lungs clear to auscultation Cardiovascular: Rate/Rhythm: + tachycardic Heart Sounds: normal S1 and normal S2 Vessels: dorsalis pedis pulses present Gastrointestinal (Abdomen): normal bowel sounds, soft, nontender, no hepatosplenomegaly Musculoskeletal: Knee: + limited ROM of knee Ankle: + ecchymosis (Large ecchymosis over the left lower extremity and hip) Skin: no rashes, warm and dry Large ecchymosis over the left hip and left lower extremity Neurologic: patellar DTR's 2+ bilat, sensation intact Psychiatric: Orientation: oriented x 3 and cooperative Insight: + limited insight Lymphatic: no cervical or axillary lymphadenopathy Principal Diagnosis Rhabdomyolysis, Right great toe cellulitis Discharge Exam General: Resting comfortably HEENT: NC/AT; PERRLA with EOMI; [place] conjunctiva, MMM. No erythema of posterior pharynx Neck: Supple and nontender Cardiac: RRR Lungs: CTA bilaterally Abdomen: Bowel normoactive X 4; Nontender to palpation Extremities: Warm. No edema present Neuro: No focal weakness Skin: Right first toe with improvement in erythema. Discharge Data Allergies Allergy/AdvReac Type Severity Reaction Status Date / Time codeine Allergy Mild RASH Verified 10/15/19 13:30 Sulfa (Sulfonamide Allergy Unknown . Verified 10/15/19 13:30 Antibiotics) ciprofloxacin Allergy Verified 10/15/19 13:30 latex Allergy Verified 10/15/19 13:30 eszopiclone [From Lunesta] AdvReac Severe wanted to Verified 10/15/19 13:30 hurt herseld lorazepam [From Ativan] AdvReac Severe wanted to Verified 10/15/19 13:30 hurt herself zolpidem [From Ambien] AdvReac Severe wanted to Verified 10/15/19 13:30 hurt herself Consultations 10/15/19 15:09 ED Decision to Admit Stat Ordered Studies 10/15/19 12:36 CT abd pelvis IV con only Stat CT cervical spine wo con Stat CT head/brain wo con Stat Foot XR Hospital Course (1) Rhabdomyolysis: Pt. cannot recall how long she laid on the ground prior to calling for help -- possibly up to 48 hours. CK level 30,897 on admission, level improved to 3,000 prior to discharge. Myalgias also resolved. Has associated elevation in LFTs, now improved. Provided script for outpatient labs in 3 days. Received aggressive IV fluid hydration. (2) Transaminitis: Elevated LFTs in setting of rhabdo; remain elevated but now improved. CT A/P negative for acute liver abnormalities. Hepatitis panel negative. Monitor LFTs as oupt in 3-4 days. (3) Cellulitis: Right first toe cellulitis; erythema is improving but pt. c/o increased pain in right foot. XR of foot on day of admission neg for acute fracture or soft tissue abnormality; pt. did not wish to proceed with MRI to rule out osteomyelitis -- ESR and CRP were both elevated. Monitor for improvement in symptoms as outpatient. Wound culture +coag negative Staph. Uric acid level was 3.8; Procalcitonin <0.05. Converted Ceftriaxone and Vancomycin (h/o MRSA) to Clindamycin 450 mg q8hr with daily probiotic. Will discharge with course of Keflex (no indication for coverage with Clinda). (4) Urinary retention: Placed caruso on admission. Flomax 0.4 mg daily. Removed caruso for voiding trial, no retention at discharge. (5) Frequent falls: Fall etiology is unclear and it is very difficult to obtain accurate history from patient -- tt is hard to evaluate if she had leg weakness prior to developing rhabdo or if there is an underlying spinal issue leading to leg weakness. Ambulating well prior to discharge. (6) Prediabetes: A1C is 5.8. Carb consistent diet and weight loss. (7) Elevated troponin: Trop peaked at 0.075, possibly related to elevated CK. Echo neg for wall motion abnormalities. (8) Hypothyroidism: TSH is 0.074. Holding Synthroid -- recommend to f/u with outpatient PCP. Is likely leading to increased anxiety/distress as well. (9) Post traumatic stress disorder (PTSD): With possible history of schizophrenia and bipolar disorder.Xanax 2 mg PO qhs scheduled. (10) Hypercholesteremia: Total chol level 236, Trig 255, LDL 137. Discuss statin agent with PCP. (11) ADD (attention deficit disorder) without hyperactivity: Continued home methylphenidate 20 mg BID. Discharged to home on 10/19/19. Total Time Total Time Spent Total Time Spent (In Minutes): >30 minutes Total Time Includes: Examination of the Patient, Discharge Planning, Medication Reconciliation, Communication With Other Providers and Other Discharge Plan Discharge Items Patient Disposition: Home - Self-Care Reason For Visit: FALL,RHABDOMYOLISIS Discharge Diagnosis: Rhabdomyolysis, Right toe cellulitis Condition on Discharge: Fair Goals: You have been hospitalized for an acute medical problem. During your stay at [facility], we have made an effort to correct the problem that brought you to the hospital while keeping you as comfortable as possible. Medications were used to bring your condition under control and your discharge instructions will include directions for any medications you should take after leaving the hospital. Please make sure you see your Primary Care Provider as part of your follow up plan. Activity: As commented below Exercise/Sports: Wait until after follow-up appointment Non-emergency contact: Primary Care Provider Call non-emergency contact if: you have any medication questions, your symptoms worsen, you have a fever, your wound has increased redness, your wound has increased drainage and your wound pain has increased Follow-up/Referrals: Nava Lorenz, [Primary Care Provider] - 10/26/19 8:15 am (Please, follow up at Dr. Lorenz's office with her associate, Vincenzo HERNANDEZ, on FridayOctober 26 at 8:15 am. *If you need to change this appointment, call their office at [phone].) Diet: Carb Consistent or DM2 and Heart Healthy Ambulatory Orders: Comprehensive Metabolic Panel (Routine) Timeframe: 3 Days Location: Determined by Patient Ordered By: Jania Tapia Attending Provider Instructions: 1. Rhabdomyolysis * Now resolved; please continue to drink plenty of fluids at home. 2. Transaminitis (elevated liver function tests) * A script was provided for lab work in 3-4 days to monitor liver function tests. * Results will be faxed to your PCP for evaluation. 3. Cellulitis of the right toe * Please continue Keflex 500 mg QID. * Please take a daily probiotic (can be purchased over the counter) for 2 weeks. * You will need to follow up with primary care provider for re-evaluation -- appointment is scheduled on 10/26/19. 4. Hypothyroidism * Please hold Synthroid at home. * Discuss resuming med with PCP at your next appointment. Pending Studies at Discharge: No Stand-Alone Forms: My [facility] Medications and DC Order Prescriptions: New Florastor 250 mg Capsule 250 mg PO DAILY 1 Days Qty: 1 RF: 0 cephalexin 500 mg Capsule 500 mg PO QID 6 Days Qty: 24 RF: 0 Continued alprazolam [Xanax] 1 mg tablet 1 mg PO TID Qty: 20 RF: 0 gabapentin 300 mg capsule 600 mg PO TID RF: 0 methylphenidate HCl [Ritalin] 20 mg tablet 20 mg PO BID RF: 0 lidocaine [Lidoderm] 5 % adhesive patch,medicated 1 patch TOP DAILY Qty: 30 RF: 0 nitroglycerin 0.4 mg tablet, sublingual 0.4 mg SL Q5M PRN (Reason: chest pain) RF: 0 Discontinued levothyroxine [Synthroid] 75 mcg tablet 75 mcg PO DAILY Qty: 30 RF: 2 Discharge Orders: Discharge Order (Routine); Ordered 10/19/19 Ordered By: Benito Centeno Admission Data Admit Date/Time: 10/15/19 17:20 Attending Provider: Benito Centeno Admit Provider: Chinyere Marina Primary Care Provider: Nava Lorenz Other Providers: Chinyere Marina Other Interventions: Discharge Summary Assessment (RN) Last Done: 10/19/19 14:23 Coding Level of Care Code D/C Day Management >30 mins Diagnoses Rhabdomyolysis M62.82 Rhabdomyolysis type: non-traumatic Transaminitis R74.0 Cellulitis L03.90 Urinary retention R33.9 Frequent falls R29.6 Prediabetes R73.03 Elevated troponin R79.89 Hypothyroidism E03.9 Post traumatic stress disorder (PTSD) F43.10 Hypercholesteremia E78.00 ADD (attention deficit disorder) without hyperactivity F98.8
[2019-10-19] MEDS ORDERED: cephALEXin 500 MG CAP PO SCH ×2 (17:00)
== END 2019-10-19 16:37 | disposition home or self-care (01) | DRG 558 ==
LOC: ED 11:56 → SUATTDRO 17:20 → 2W 17:20